=== PATIENT | male | born 1970 | race Caucasian/White ===

== ENCOUNTER 2016-12-23 06:46 | Emergency (ER) | payer OTHER ==
[~2016-12-23] VITALS: Ht 172.7 cm; Wt 93.0 kg
[~2016-12-23 06:46] MED LIST: CARB200T PO; COZA25TA PO; FOLI1TAB4 PO; HYDR25TA5 PO; LAMO25 PO; METR0.7537 TOPICAL; MORP1TAB25 PO; PANT20 PO; TOPA25TA8 PO; VITA100T2 PO; ZOLO100T PO
[2016-12-23 06:52] VITALS: BP 126/86; PULSE 110; RESP 20; TEMP 98.6; O2SAT 98
[2016-12-23] MEDS ORDERED: SODIUM CHLOR 0.9% 1000 ML INJ 1,000 ML IV ONE (07:00)
[2016-12-23] MEDS ORDERED: LORazepam 2 MG/ML VIAL IV ONE (07:00)
--- NOTE | 2016-12-23 07:02 | PD ---
HPI Chief Complaint: Psychiatric Symptoms Time Seen by Provider: 06:56 Travel History International Travel<30 days: No Contact w/Intl Traveler<30days: No Traveled to known affect area: No History of Present Illness HPI The patient is a 46-year-old male who presents emergency department via police as a Maradiaga act. According to the police affidavit the patient called 911 and stated he was having suicidal ideation. The patient does have a history of previous suicidal ideation with intentional overdose in July 2016. The patient has recently been having thoughts about suicide, however, does not have an actual plan. The patient does admit to drinking alcohol, last drink was last night. He denies any hallucinations or delusions. He denies any illicit drug use. Symptoms are moderate, there are no alleviating or exacerbating factors. PFSH Past Medical History Anxiety: Yes Depression: Yes Cancer: No Cardiovascular Problems: Yes (Reported hx of HTN) Diabetes: No Headaches: No Neurologic: Yes Psychiatric: Yes (Hx of anxiety and depression) Immunizations Current: Yes Seizures: Yes (Last seizure in 2010) Past Surgical History Other Surgery: Yes (STIMULATOR IN NECK) Social History Alcohol Use: Yes (occ) Tobacco Use: No Substance Use: No Allergies-Medications (Allergen,Severity, Reaction): Coded Allergies: Contrast Media (Verified Allergy, Severe, Shortness of Breath, 12/23/16) Penicillin (Verified Allergy, Severe, Shortness of Breath, 12/23/16) Reported Meds & Prescriptions Reported Meds & Active Scripts Active Metronidazole Topical 0.75 % Gel 1 Applic TOPICAL BID Apply thin layer to rash on face twice daily until resolved. Avoid mucous membranes like eyes. Topamax (Topiramate) 25 Mg Tab 25 Mg PO DIRECTED 15 Days Take 25mg by mouth in the morning and 50mg at bedtime. Vitamin B-1 (Thiamine HCl) 100 Mg Tab 100 Mg PO DAILY 15 Days Zoloft (Sertraline HCl) 100 Mg Tab 100 Mg PO DAILY 15 Days Morphine ER (Morphine Sulfate) 30 Mg Tab 30 Mg PO Q8HR 0 Days Order to update med list only. Pt has an adequate supply at home. Cozaar (Losartan Potassium) 25 Mg Tab 50 Mg PO DAILY 15 Days Lamictal (Lamotrigine) 25 Mg Tab 25 Mg PO Q12HR 15 Days Hydrochlorothiazide 25 Mg Tab 25 Mg PO DAILY 15 Days Folate (Folic Acid) 1 Mg Tab 1 Mg PO DAILY 15 Days Carbamazepine 200 Mg Tab 200 Mg PO BID 15 Days Reported Protonix (Pantoprazole Sodium) 20 Mg Tab 20 Mg PO DAILY Review of Systems Except as stated in HPI: all other systems reviewed are Neg General / Constitutional: No: Fever Cardiovascular: No: Chest Pain or Discomfort Respiratory: No: Shortness of Breath Gastrointestinal: No: Nausea, Vomiting, Abdominal Pain Neurologic: Positive: Seizures (intermittently compliant with Tegretol) Psychiatric: Positive: Suicidal Ideations, Substance Abuse (alcohol use) Physical Exam Narrative GENERAL: Awake, alert, pleasant 46-year-old male who appears his stated age and is in no acute respiratory distress. SKIN: Focused skin assessment warm/dry. HEAD: Atraumatic. Normocephalic. EYES: Pupils equal and round. No scleral icterus. No injection or drainage. ENT: No nasal bleeding or discharge. Breath smells of alcohol, poor dentition. NECK: Trachea midline. No JVD. CARDIOVASCULAR: Regular, tachycardic with a heart rate of 125. RESPIRATORY: No accessory muscle use. Clear to auscultation. Breath sounds equal bilaterally. GASTROINTESTINAL: Abdomen soft, non-tender, nondistended. Well-healed midline abdominal scar. MUSCULOSKELETAL: No obvious deformities. No clubbing. No cyanosis. No edema. NEUROLOGICAL: Awake and alert. No obvious cranial nerve deficits. Motor grossly within normal limits. Normal speech. Nonfocal. Oriented 4. Follows commands without difficulty. PSYCHIATRIC: Appropriate mood and affect; insight and judgment normal. Data Data Last Documented VS Vital Signs Date Time Temp Pulse Resp B/P Pulse Ox O2 Delivery O2 Flow Rate FiO2 12/23/16 07:42 89 18 113/59 100 Room Air 12/23/16 06:52 98.6 Orders Complete Blood Count With Diff (12/23/16 06:57) Comprehensive Metabolic Panel (12/23/16 06:57) Psych Screen (12/23/16 06:57) Lorazepam Inj (Ativan Inj) (12/23/16 07:00) Drug Screen, Random Urine (12/23/16 06:57) Alcohol (Ethanol) (12/23/16 06:57) Carbamazepine (Tegretol) (12/23/16 06:57) Sodium Chlor 0.9% 1000 Ml Inj (Ns 1000 M (12/23/16 07:00) Labs Laboratory Tests Test 12/23/16 12/23/16 07:10 07:30 White Blood Count 11.6 TH/MM3 Red Blood Count 5.41 MIL/MM3 Hemoglobin 15.8 GM/DL Hematocrit 46.4 % Mean Corpuscular Volume 85.7 FL Mean Corpuscular Hemoglobin 29.1 PG Mean Corpuscular Hemoglobin 34.0 % Concent Red Cell Distribution Width 16.9 % Platelet Count 425 TH/MM3 Mean Platelet Volume 7.8 FL Neutrophils (%) (Auto) 81.7 % Lymphocytes (%) (Auto) 11.7 % Monocytes (%) (Auto) 5.4 % Eosinophils (%) (Auto) 0.3 % Basophils (%) (Auto) 0.9 % Neutrophils # (Auto) 9.5 TH/MM3 Lymphocytes # (Auto) 1.4 TH/MM3 Monocytes # (Auto) 0.6 TH/MM3 Eosinophils # (Auto) 0.0 TH/MM3 Basophils # (Auto) 0.1 TH/MM3 CBC Comment DIFF FINAL Differential Comment Sodium Level 144 MEQ/L Potassium Level 4.2 MEQ/L Chloride Level 110 MEQ/L Carbon Dioxide Level 24.0 MEQ/L Anion Gap 10 MEQ/L Blood Urea Nitrogen 3 MG/DL Creatinine 0.87 MG/DL Estimat Glomerular Filtration 95 ML/MIN Rate Random Glucose 109 MG/DL Calcium Level 9.3 MG/DL Total Bilirubin 0.3 MG/DL Aspartate Amino Transf 26 U/L (AST/SGOT) Alanine Aminotransferase 19 U/L (ALT/SGPT) Alkaline Phosphatase 113 U/L Total Protein 8.2 GM/DL Albumin 3.8 GM/DL Carbamazepine (Tegretol) Level 0.6 MCG/ML Ethyl Alcohol Level 161 MG/DL Urine Opiates Screen NEG Urine Barbiturates Screen NEG Urine Amphetamines Screen NEG Urine Benzodiazepines Screen NEG Urine Cocaine Screen NEG Urine Cannabinoids Screen NEG MDM Medical Decision Making Medical Screen Exam Complete: Yes Emergency Medical Condition: Yes Medical Record Reviewed: Yes Interpretation(s) Laboratory Tests Test 12/23/16 12/23/16 07:10 07:30 White Blood Count 11.6 TH/MM3 Red Blood Count 5.41 MIL/MM3 Hemoglobin 15.8 GM/DL Hematocrit 46.4 % Mean Corpuscular Volume 85.7 FL Mean Corpuscular Hemoglobin 29.1 PG Mean Corpuscular Hemoglobin 34.0 % Concent Red Cell Distribution Width 16.9 % Platelet Count 425 TH/MM3 Mean Platelet Volume 7.8 FL Neutrophils (%) (Auto) 81.7 % Lymphocytes (%) (Auto) 11.7 % Monocytes (%) (Auto) 5.4 % Eosinophils (%) (Auto) 0.3 % Basophils (%) (Auto) 0.9 % Neutrophils # (Auto) 9.5 TH/MM3 Lymphocytes # (Auto) 1.4 TH/MM3 Monocytes # (Auto) 0.6 TH/MM3 Eosinophils # (Auto) 0.0 TH/MM3 Basophils # (Auto) 0.1 TH/MM3 CBC Comment DIFF FINAL Differential Comment Sodium Level 144 MEQ/L Potassium Level 4.2 MEQ/L Chloride Level 110 MEQ/L Carbon Dioxide Level 24.0 MEQ/L Anion Gap 10 MEQ/L Blood Urea Nitrogen 3 MG/DL Creatinine 0.87 MG/DL Estimat Glomerular Filtration 95 ML/MIN Rate Random Glucose 109 MG/DL Calcium Level 9.3 MG/DL Total Bilirubin 0.3 MG/DL Aspartate Amino Transf 26 U/L (AST/SGOT) Alanine Aminotransferase 19 U/L (ALT/SGPT) Alkaline Phosphatase 113 U/L Total Protein 8.2 GM/DL Albumin 3.8 GM/DL Carbamazepine (Tegretol) Level 0.6 MCG/ML Ethyl Alcohol Level 161 MG/DL Urine Opiates Screen NEG Urine Barbiturates Screen NEG Urine Amphetamines Screen NEG Urine Benzodiazepines Screen NEG Urine Cocaine Screen NEG Urine Cannabinoids Screen NEG Differential Diagnosis Differential diagnosis includes depressive disorder NOS, mood disorder, intoxication, substance induced mood disorder, alcohol abuse with alcohol induced mood disorder. Narrative Course IV was established, labs are drawn and sent, and the patient was placed on cardiac telemetry monitoring and continuous pulse oximetry monitoring. The patient was administered 1 L of IV fluids and Ativan 1 mg intravenously. Tegretol level was sent to lab. Tegretol level is subtherapeutic at 0.6. Alcohol level was elevated at 161. The patient is medically cleared to be evaluated by psychiatry. Disposition as per psych. Diagnosis Primary Impression: Alcohol abuse with alcohol-induced mood disorder Condition: Stable Braxton Owens MD December 23, 2016 07:02
[2016-12-23 07:30] LABS: AUTOMATED NEUTROPHIL # 9.5 TH/MM3 (1.8-7.7); BASOPHIL # 0.1 TH/MM3 (0-0.2); BASOPHIL % 0.9 % (0.0-2.0); EOSINOPHIL % 0.3 % (0.0-4.0); HEMATOCRIT 46.4 % (39.0-51.0); HEMO FLAGS DIFF FINAL; LYMPH % 11.7 % (9.0-44.0); LYMPHOCYTE # 1.4 TH/MM3 (1.0-4.8); MEAN CELL VOLUME 85.7 FL (80.0-100.0); MEAN CORPUSCULAR HEMOGLOBIN 29.1 PG (27.0-34.0); MONO % 5.4 % (0.0-8.0); NEUT % 81.7 % (16.0-70.0); PLATELET COUNT 425 TH/MM3 (150-450); RED BLOOD COUNT 5.41 MIL/MM3 (4.50-5.90); RED CELL DISTRIBUTION WIDTH 16.9 % (11.6-17.2); WHITE BLOOD COUNT 11.6 TH/MM3 (4.0-11.0)
[2016-12-23 07:42] VITALS: BP 113/59; PULSE 89; RESP 18; O2SAT 100
[2016-12-23 07:47] LABS: ALKALINE PHOSPHATASE 113 U/L (45-117); TOTAL BILIRUBIN ADULT 0.3 MG/DL (0.2-1.0)
[2016-12-23 07:50] LABS: AMPHETAMINE, URINE NEG (NEG); BARBITURATES, URINE NEG (NEG); COCAINE, URINE NEG (NEG)
[2016-12-23 07:50] LABS: ALT (GPT) 19 U/L (12-78); ANION GAP 10 MEQ/L (5-15); AST (GOT) 26 U/L (15-37); BLOOD UREA NITROGEN 3 MG/DL (7-18); CHLORIDE 110 MEQ/L (98-107); GLOMERULAR FILTRATION RATE 95 ML/MIN (>89); SODIUM (NA) 144 MEQ/L (136-145)
[2016-12-23 07:58] LABS: POTASSIUM 4.2 MEQ/L (3.5-5.1)
[2016-12-23 09:40] VITALS: BP 148/82
[2016-12-23] MEDS ORDERED: SERT-129 PO (14:46)
--- NOTE | 2016-12-23 15:05 | PD ---
History of Present Illness Chief Complaint: Psychiatric Symptoms Time Seen by Provider: 11:00 Travel History International Travel<30 Days: No Contact w/Intl Traveler<30days: No Known affected area: No Legal Status Legal Status: Maradiaga Act Maradiaga Act Signed By: Kimmy Manjarrez History of Present Illness: History of Present Illness HPI The patient is a 46-year-old male with history of depression, OCD as well as alcohol dependence who presents to emergency department via police as a Maradiaga act. According to the police affidavit the patient called 911 and stated he was having suicidal thoughts and that he was in the beginning stages of having suicidal ideas. he states that for the past 4 to 5 days he has been feeling more depressed with being more isolative, decreased energy and impaired sleep. He has also been drinking more and presented with BAL of 161. He has a recent psychiatric hospitalization in Jul 2016 after an overdose. He tells me that he did not follow up with recommendations for outpatient care and has run out of his antidepressants. Patient is seen in [facility]. he is alert, oriented, engaging and calm. He is clinically sober at this time. Speech is clear and logical. Mood is mildly depressed. He does not endorse any hallucinations, no delusions and no paranoia. He tells me that he is no longer feeling suicidal and that he would like to be discharged with a prescription in order to begin the antidepressant. he reports that the medication helped him while he took it. His reason for not following up after his discharge ids that he does not drive and depends on either friends or public transportation for rides to see his medical providers. At this time the patient denies any suicidal or homicidal ideation, intent or plan. PFSH Past Medical History Anxiety: Yes Depression: Yes Cancer: No Cardiovascular Problems: Yes (Reported hx of HTN) Diabetes: No Headaches: No Neurologic: Yes Psychiatric: Yes (Hx of anxiety and depression) Immunizations Current: Yes Seizures: Yes (Last seizure in 2010) Past Surgical History Tonsillectomy: Yes Other Surgery: Yes (STIMULATOR IN NECK) Psychiatric History Psychiatric History Hx Psychiatric Treatment: Pt reported a history of 2 psychiatric hospitalizations with the last one here at [facility] in 2016. History of Inpatient Treatment: Yes ([facility] 2016) Guns or firearms in home: No Social History Single male. never . Lives with a roommate. Unemployed and on disability. Hx Alcohol Use: Yes (occ) Hx Tobacco Use: No Hx Substance Use: No Substance Use Type: Alcohol (BAL 161. Staes he drinks one six pack per week.) Hx of Substance Use Treatment: No Family Psychiatric History None reported Allergies-Medications (Allergen,Severity, Reaction): Coded Allergies: Contrast Media (Verified Allergy, Severe, Shortness of Breath, 12/23/16) Penicillin (Verified Allergy, Severe, Shortness of Breath, 12/23/16) Reported Meds & Prescriptions Reported Meds & Active Scripts Active Topamax (Topiramate) 25 Mg Tab 25 Mg PO DIRECTED 15 Days Take 25mg by mouth in the morning and 50mg at bedtime. Morphine ER (Morphine Sulfate) 30 Mg Tab 30 Mg PO Q8HR 0 Days Order to update med list only. Pt has an adequate supply at home. Lamictal (Lamotrigine) 25 Mg Tab 25 Mg PO Q12HR 15 Days Carbamazepine 200 Mg Tab 200 Mg PO BID 15 Days Reported Sertraline (Sertraline HCl) 100 Mg Tab 100 Mg PO DAILY Exam Alert: Yes [place]: Person (ox4) Mood: Depressed Affect: Appropriate Speech: Clear, Logical Eye Contact: Normal Memory Intact: Comment (no impairmetn) Hallucinations: Other (negative) Delusions: No Suicidal: Ideation (denies any) Homicidal: Ideation (denies any) Insight/Judgement Fair. Not impaired. [facility] Medical Decision Making Medical Record Reviewed: Yes Assessment/Plan 46 year old male with history of MDD, OCD as well as alcohol dependence who is under a BA after he called the police as he was beginning to feel suicidal. the patient had been drinking prior to calling the police. Patient at the time of this evaluation is clinically sober. He denies any suicidal or homicidal ideation and is requesting discharge. He does not meet BA criteria at this time.He is future oriented. He is encouraged to maintain abstinence from ETOH. Recommend outpatient follow up. Lift BA Orders Complete Blood Count With Diff (12/23/16 06:57) Comprehensive Metabolic Panel (12/23/16 06:57) Psych Screen (12/23/16 06:57) Lorazepam Inj (Ativan Inj) (12/23/16 07:00) Drug Screen, Random Urine (12/23/16 06:57) Alcohol (Ethanol) (12/23/16 06:57) Carbamazepine (Tegretol) (12/23/16 06:57) Sodium Chlor 0.9% 1000 Ml Inj (Ns 1000 M (12/23/16 07:00) Diet Regular Basic (12/23/16 Lunch) Results Vital Signs Date Time Temp Pulse Resp B/P Pulse Ox O2 Delivery O2 Flow Rate FiO2 12/23/16 09:40 82 20 148/82 99 12/23/16 07:42 89 18 113/59 100 Room Air 12/23/16 07:42 89 18 12/23/16 06:52 98.6 110 20 126/86 98 Laboratory Tests Test 12/23/16 12/23/16 07:10 07:30 White Blood Count 11.6 Red Blood Count 5.41 Hemoglobin 15.8 Hematocrit 46.4 Mean Corpuscular Volume 85.7 Mean Corpuscular Hemoglobin 29.1 Mean Corpuscular Hemoglobin 34.0 Concent Red Cell Distribution Width 16.9 Platelet Count 425 Mean Platelet Volume 7.8 Neutrophils (%) (Auto) 81.7 Lymphocytes (%) (Auto) 11.7 Monocytes (%) (Auto) 5.4 Eosinophils (%) (Auto) 0.3 Basophils (%) (Auto) 0.9 Neutrophils # (Auto) 9.5 Lymphocytes # (Auto) 1.4 Monocytes # (Auto) 0.6 Eosinophils # (Auto) 0.0 Basophils # (Auto) 0.1 CBC Comment DIFF FINAL Differential Comment Sodium Level 144 Potassium Level 4.2 Chloride Level 110 Carbon Dioxide Level 24.0 Anion Gap 10 Blood Urea Nitrogen 3 Creatinine 0.87 Estimat Glomerular Filtration 95 Rate Random Glucose 109 Calcium Level 9.3 Total Bilirubin 0.3 Aspartate Amino Transf 26 (AST/SGOT) Alanine Aminotransferase 19 (ALT/SGPT) Alkaline Phosphatase 113 Total Protein 8.2 Albumin 3.8 Carbamazepine (Tegretol) Level 0.6 Ethyl Alcohol Level 161 Urine Opiates Screen NEG Urine Barbiturates Screen NEG Urine Amphetamines Screen NEG Urine Benzodiazepines Screen NEG Urine Cocaine Screen NEG Urine Cannabinoids Screen NEG Diagnosis Primary Impression: Alcohol abuse with alcohol-induced mood disorder Additional Impression: Major depressive disorder Psychiatrically Cleared: Yes Med/ Other Pt Specific Info: Prescription(s) given Prescriptions Sertraline (Zoloft)50 Mg Tab50 Mg PO DAILY #30 TAB Ref 0 Prov:Meche Finney 12/23/16 Disposition: 01 DISCHARGE HOME Condition: Stable Problem Qualifiers Additional Impression: Major depressive disorder Qualified Code: F33.0 - Mild episode of recurrent major depressive disorder Meche Finney December 23, 2016 15:05
[2016-12-23] MEDS ORDERED: ZOLO50TA PO (15:08)
[2016-12-23 15:13] VITALS: BP 148/82
[2016-12-27] MEDS ORDERED: LORazepam 2 MG/ML VIAL IV ONE (18:15)
== END 2016-12-23 15:17 | disposition home or self-care (01) ==
LOC: NEPE 06:46 → NEPJ 15:17
DX: F10.24 Alcohol dependence with alcohol-induced mood disorder (principal); F33.0 Major depressive disorder, recurrent, mild; Y90.6 Blood alcohol level of 120-199 mg/100 ml; Z79.899 Other long term (current) drug therapy
CPT/HCPCS: 80053; 80156; 80307; 85025; 96361; 96374; 99283; J2060; J7030

== ENCOUNTER 2017-10-04 03:27 | Emergency (ER) | payer OTHER ==
[~2017-10-04] VITALS: Ht 172.7 cm; Wt 90.5 kg
[~2017-10-04 03:27] MED LIST changes: -COZA25TA PO; -FOLI1TAB4 PO; -HYDR25TA5 PO; -METR0.7537 TOPICAL; -PANT20 PO; +SERT-129 PO; -TOPA25TA8 PO; +TOPI25 PO; -VITA100T2 PO; -ZOLO100T PO; +ZOLO50TA PO
[2017-10-04 03:29] VITALS: BP 152/83; PULSE 85; RESP 18; TEMP 98.6; O2SAT 95
[2017-10-04] MEDS ORDERED: METO25TA3 PO (03:50)
[2017-10-04] MEDS ORDERED: RESP: ALBUTEROL 2.5 MG/IPRATROPIUM 0.5 MG NEB (SCH) INH ONE (04:30)
[2017-10-04 04:43] LABS: AUTOMATED NEUTROPHIL # 2.8 TH/MM3 (1.8-7.7); BASOPHIL % 0.4 % (0.0-2.0); EOSINOPHIL # 0.3 TH/MM3 (0-0.4); EOSINOPHIL % 5.4 % (0.0-4.0); HEMATOCRIT 44.1 % (39.0-51.0); HEMOGLOBIN 15.4 GM/DL (13.0-17.0); LYMPH % 24.4 % (9.0-44.0); LYMPHOCYTE # 1.3 TH/MM3 (1.0-4.8); MEAN CELL VOLUME 86.8 FL (80.0-100.0); MEAN CORPUSCULAR HEMOGLOBIN 30.4 PG (27.0-34.0); MEAN PLATELET VOLUME 7.2 FL (7.0-11.0); MONO % 15.2 % (0.0-8.0); MONOCYTE # 0.8 TH/MM3 (0-0.9); NEUT % 54.6 % (16.0-70.0); PLATELET COUNT 237 TH/MM3 (150-450); RED BLOOD COUNT 5.08 MIL/MM3 (4.50-5.90); WHITE BLOOD COUNT 5.2 TH/MM3 (4.0-11.0)
--- NOTE | 2017-10-04 04:46 | RADRPT ---
EXAM DATE/TIME: 10/04/2017 04:33 [facility] COMPARISON: No previous studies available for comparison. INDICATIONS : Shortness of breath and wheezing x 1 week MEDICAL HISTORY : Hypertension. SURGICAL HISTORY : Tonsillectomy. ENCOUNTER: Initial ACUITY: 1 week PAIN SCORE: 7/10 LOCATION: Bilateral chest FINDINGS: There is prominence of the perivascular markings with crowding of the bronchovascular markings may be due to expiratory state of this radiograph, however slight interstitial process is not excluded. Hea rt and mediastinum are unremarkable for technique. CONCLUSION: There is prominence of the perivascular markings with crowding of the bronchovascular markings may be due to expiratory state of this radiograph, however slight interstitial process is not excluded. Abdullahi Olivares MD on October 04, 2017 at 4:44 Board Certified Radiologist. This report was verified electronically.
[2017-10-04 04:59] LABS: ALBUMIN 3.9 GM/DL (3.4-5.0); ALT (GPT) 24 U/L (12-78); AST (GOT) 27 U/L (15-37); BICARBONATE 22.8 MEQ/L (21.0-32.0); BLOOD UREA NITROGEN 4 MG/DL (7-18); CALCIUM 8.6 MG/DL (8.5-10.1); CHLORIDE 103 MEQ/L (98-107); CREATININE 0.84 MG/DL (0.60-1.30); GLOMERULAR FILTRATION RATE 98 ML/MIN (>89); GLUCOSE,RANDOM 83 MG/DL (74-106); SODIUM (NA) 136 MEQ/L (136-145)
[2017-10-04 05:09] LABS: ALKALINE PHOSPHATASE 133 U/L (45-117); TOTAL BILIRUBIN ADULT 0.3 MG/DL (0.2-1.0); TOTAL PROTEIN 8.1 GM/DL (6.4-8.2)
--- NOTE | 2017-10-04 05:23 | PD ---
HPI Chief Complaint: Psychiatric Symptoms Time Seen by Provider: 04:12 Travel History International Travel<30 days: No Contact w/Intl Traveler<30days: No Traveled to known affect area: No History of Present Illness HPI 47-year-old white male presents emergency department on a voluntary basis for psychological evaluation. Patient states that his mother this past month. He feels guilty. He states that she was on the phone with him when she was attempting to repair some wound dressings when she accidentally cut herself with scissors and blood out Coumadin. The patient states that he has contemplated suicide. Has no current plan. No homicidal ideation. No toxic ingestions. The patient is overwhelmed with guilt. He states that he would like to come in and get help before he does anything. Patient does admit to having a cold recently. He has had runny nose, cough and congestion. Some wheezing. He denies any tobacco. Denies any drugs. He does admit to alcohol. 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) Neurologic: Yes Psychiatric: Yes (Hx of anxiety and depression) Immunizations Current: Yes Seizures: Yes (Last seizure in 2010) Influenza Vaccination: Yes Past Surgical History Narrative Surgical Multiple left arm surgeries for left elbow fracture and nerve palsy Tonsillectomy: Yes Other Surgery: Yes (STIMULATOR IN NECK) Social History Alcohol Use: Yes (daily) Tobacco Use: No Substance Use: No Allergies-Medications (Allergen,Severity, Reaction): Coded Allergies: diatrizoate meglumine (Unverified Allergy, Severe, Shortness of Breath, ) gadobenic acid (Unverified Allergy, Severe, Shortness of Breath, 10/04/17) gadodiamide (Unverified Allergy, Severe, Shortness of Breath, 10/04/17) gadoteridol (Unverified Allergy, Severe, Shortness of Breath, 10/04/17) iodixanol (Unverified Allergy, Severe, Shortness of Breath, 10/04/17) iohexol (Unverified Allergy, Severe, Shortness of Breath, 10/04/17) penicillin G (Unverified Allergy, Severe, Shortness of Breath, 10/04/17) Reported Meds & Prescriptions Reported Meds & Active Scripts Active Proventil Hfa 6.7 GM Inh (Albuterol Sulfate) 90 Mcg/Act Aer 2 Puff INH Q6H PRN Deltasone (Prednisone) 20 Mg Tab 20 Mg PO BID Topamax (Topiramate) 25 Mg Tab 25 Mg PO DIRECTED 15 Days Take 25mg by mouth in the morning and 50mg at bedtime. Morphine ER (Morphine Sulfate) 30 Mg Tab 30 Mg PO Q8HR 0 Days Order to update med list only. Pt has an adequate supply at home. Lamictal (Lamotrigine) 25 Mg Tab 25 Mg PO Q12HR 15 Days Carbamazepine 200 Mg Tab 200 Mg PO BID 15 Days Reported Metoprolol Tartrate 25 Mg Tab 25 Mg PO DAILY Review of Systems Except as stated in HPI: all other systems reviewed are Neg Physical Exam Narrative GENERAL: Well-nourished, well-developed patient.Patient smells of EtOH and appears intoxicated. SKIN: Warm and dry. HEAD: Normocephalic and atraumatic. EYES: No scleral icterus. No injection or drainage. ENT: No nasal drainage noted. Mucous membranes pink. Airway patent. NECK: Supple, trachea midline. Moves head freely without obvious discomfort. CARDIOVASCULAR: Regular rate and rhythm without murmurs, gallops, or rubs. RESPIRATORY: Patient has scattered rhonchi and a few expiratory wheezes. GASTROINTESTINAL: Abdomen soft, non-tender, nondistended. EXTREMITIES: No cyanosis or edema. BACK: Nontender without obvious deformity. No CVA tenderness. NEURO: Patient is alert and oriented. no sensorimotor deficits. Nonfocal. Normal speech. PSYCH: No delusions. No auditory or visual hallucinations. Data Data Last Documented VS Vital Signs Date Time Temp Pulse Resp B/P (MAP) Pulse Ox O2 Delivery O2 Flow Rate FiO2 10/04/17 03:29 98.6 85 18 152/83 (106) 95 Orders Orders Complete Blood Count With Diff (10/04/17 04:19) Comprehensive Metabolic Panel (10/04/17 04:19) Thyroid Stimulating Hormone (10/04/17 04:19) Psych Screen (10/04/17 04:19) Drug Screen, Random Urine (10/04/17 04:19) Alcohol (Ethanol) (10/04/17 04:19) Chest, Single Ap (10/04/17 04:19) Albuterol-Ipratropium Neb (Duoneb Neb) (10/04/17 04:30) Influenzae A/B Antigen (10/04/17 04:19) Labs Laboratory Tests Test 10/04/17 04:38 10/04/17 05:20 White Blood Count 5.2 TH/MM3 Red Blood Count 5.08 MIL/MM3 Hemoglobin 15.4 GM/DL Hematocrit 44.1 % Mean Corpuscular Volume 86.8 FL Mean Corpuscular Hemoglobin 30.4 PG Mean Corpuscular Hemoglobin Concent 35.0 % Red Cell Distribution Width 17.0 % Platelet Count 237 TH/MM3 Mean Platelet Volume 7.2 FL Neutrophils (%) (Auto) 54.6 % Lymphocytes (%) (Auto) 24.4 % Monocytes (%) (Auto) 15.2 % Eosinophils (%) (Auto) 5.4 % Basophils (%) (Auto) 0.4 % Neutrophils # (Auto) 2.8 TH/MM3 Lymphocytes # (Auto) 1.3 TH/MM3 Monocytes # (Auto) 0.8 TH/MM3 Eosinophils # (Auto) 0.3 TH/MM3 Basophils # (Auto) 0.0 TH/MM3 CBC Comment DIFF FINAL Differential Comment Blood Urea Nitrogen 4 MG/DL Creatinine 0.84 MG/DL Random Glucose 83 MG/DL Total Protein 8.1 GM/DL Albumin 3.9 GM/DL Calcium Level 8.6 MG/DL Alkaline Phosphatase 133 U/L Aspartate Amino Transf (AST/SGOT) 27 U/L Alanine Aminotransferase (ALT/SGPT) 24 U/L Total Bilirubin 0.3 MG/DL Sodium Level 136 MEQ/L Potassium Level 3.7 MEQ/L Chloride Level 103 MEQ/L Carbon Dioxide Level 22.8 MEQ/L Anion Gap 10 MEQ/L Estimat Glomerular Filtration Rate 98 ML/MIN Thyroid Stimulating Hormone 3rd Gen 1.080 uIU/ML Ethyl Alcohol Level 316 MG/DL Urine Opiates Screen NEG Urine Barbiturates Screen NEG Urine Amphetamines Screen NEG Urine Benzodiazepines Screen NEG Urine Cocaine Screen NEG Urine Cannabinoids Screen NEG MDM Medical Decision Making Medical Screen Exam Complete: Yes Emergency Medical Condition: Yes Medical Record Reviewed: Yes Interpretation(s) Last 24 hours Impressions Chest X-Ray 10/04/17 0419 Signed Impressions: Service Date/Time: Wednesday, October 04, 2017 04:33 - CONCLUSION: There is prominence of the perivascular markings with crowding of the bronchovascular markings may be due to expiratory state of this radiograph, however slight interstitial process is not excluded. Abdullahi Olivares MD Laboratory Tests Test 10/04/17 04:38 10/04/17 05:20 White Blood Count 5.2 TH/MM3 Red Blood Count 5.08 MIL/MM3 Hemoglobin 15.4 GM/DL Hematocrit 44.1 % Mean Corpuscular Volume 86.8 FL Mean Corpuscular Hemoglobin 30.4 PG Mean Corpuscular Hemoglobin Concent 35.0 % Red Cell Distribution Width 17.0 % Platelet Count 237 TH/MM3 Mean Platelet Volume 7.2 FL Neutrophils (%) (Auto) 54.6 % Lymphocytes (%) (Auto) 24.4 % Monocytes (%) (Auto) 15.2 % Eosinophils (%) (Auto) 5.4 % Basophils (%) (Auto) 0.4 % Neutrophils # (Auto) 2.8 TH/MM3 Lymphocytes # (Auto) 1.3 TH/MM3 Monocytes # (Auto) 0.8 TH/MM3 Eosinophils # (Auto) 0.3 TH/MM3 Basophils # (Auto) 0.0 TH/MM3 CBC Comment DIFF FINAL Differential Comment Blood Urea Nitrogen 4 MG/DL Creatinine 0.84 MG/DL Random Glucose 83 MG/DL Total Protein 8.1 GM/DL Albumin 3.9 GM/DL Calcium Level 8.6 MG/DL Alkaline Phosphatase 133 U/L Aspartate Amino Transf (AST/SGOT) 27 U/L Alanine Aminotransferase (ALT/SGPT) 24 U/L Total Bilirubin 0.3 MG/DL Sodium Level 136 MEQ/L Potassium Level 3.7 MEQ/L Chloride Level 103 MEQ/L Carbon Dioxide Level 22.8 MEQ/L Anion Gap 10 MEQ/L Estimat Glomerular Filtration Rate 98 ML/MIN Thyroid Stimulating Hormone 3rd Gen 1.080 uIU/ML Ethyl Alcohol Level 316 MG/DL Urine Opiates Screen NEG Urine Barbiturates Screen NEG Urine Amphetamines Screen NEG Urine Benzodiazepines Screen NEG Urine Cocaine Screen NEG Urine Cannabinoids Screen NEG Differential Diagnosis MDM: High Differential diagnoses: Schizophrenia, schizoaffective disorder, bipolar, anxiety, depression, adjustment reaction, mood disorder NOS, ODD, depressive disorder NOS, dementia, dementia with agitation, psychosis NOS, substance induced mood disorder, DMDD, Asperger syndrome, infection,electrolyte abnormality, malingering. Narrative Course Mental health screening discussed with the patient. Psychiatric screen ordered. The patient was given albuterol and Atrovent nebulizer treatment. Chest x-ray shows interstitial changes consistent with an upper respiratory tract infection but no pneumonia. I suspect he has some reactive airway component. This is medical clearance for psychiatric admission, alcohol intoxication, alcohol abuse, reactive airway disease Diagnosis Primary Impression: Medical clearance for psychiatric admission Additional Impressions: Alcohol intoxication Qualified Codes: F10.920 - Alcohol use, unspecified with intoxication, uncomplicated Alcohol abuse Reactive airway disease Qualified Codes: J45.909 - Unspecified asthma, uncomplicated Scripts Albuterol 6.7 GM Inh (Proventil Hfa 6.7 GM Inh) 90 Mcg/Act Aer 2 PUFF INH Q6H Y for SHORTNESS OF BREATH, #1 INHALER 0 Refills Prov: Kenny Diaz MD 10/04/17 Prednisone (Deltasone) 20 Mg Tab 20 MG PO BID, #10 TAB 0 Refills Prov: Kenny Diaz MD 10/04/17 Condition: Stable Danny Barrett Oct 04, 2017 05:23
[2017-10-04] MEDS ORDERED: ALBU6.7H INH (05:56)
[2017-10-04] MEDS ORDERED: PRED-503 PO (05:56)
[2017-10-04] MEDS ORDERED: guaiFENesin/CODEINE SYRUP 200 MG/20 MG/10 ML CUP PO ONE (08:00)
[2017-10-04 09:23] VITALS: BP 129/87; PULSE 118; RESP 18; O2SAT 95
[2017-10-04] MEDS ORDERED: TRAZ50TA12 PO (15:00)
--- NOTE | 2017-10-04 15:28 | PD ---
History of Present Illness Chief Complaint: Psychiatric Symptoms Time Seen by Provider: 15:00 Travel History International Travel<30 Days: No Contact w/Intl Traveler<30days: No Known affected area: No Legal Status Legal Status: Voluntary History of Present Illness: History of Present Illness HPI 47-year-old white male with history of depression, obsessive-compulsive disorder , alcohol abuse who presents emergency department on a voluntary basis for psychological evaluation. She reported to ED provider that his mother this past month and he has been feeling guilty about her . He states that he was on the phone with his mother when she was attempting to repair some more dressings and she accidentally cut herself with scissors and bled out due to being on Coumadin. He presented intoxicated and his blood alcohol level was 316 on his arrival to the ED. He admits to drinking prior to getting here. The patient was allowed to sleep it off and was monitored. He presented no behavioral concerns and no suicidality. Electronic medical record is reviewed. His last contact with [facility] psychiatry was in December 2016. He came in under a [place] for suicidality act in context of alcohol intoxication. His last hospitalization was in July 2016 for substance-induced mood disorder. The patient is seen in [facility]. He is clinically sober. No evidence of any alcohol withdrawal at this time. He is calm, cooperative and engaging. He is dressed in hospital [facility]. Poor hygiene and malodorous. His mood is calm. There is no psychosis, no saturnino or hypomania. He denies any suicidal or homicidal ideation, intent or plan. He states that he had been drinking and that was the reason he was feeling suicidal. He also tells me that he has not been sleeping well due to not being able to get his medication from [facility] due to problems with the prescription. 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 Outpatient care through [facility]. History of Inpatient Treatment: Yes ([facility] 2016) Guns or firearms in home: No Social History Single never male. Unemployed. Lives with a roommate. Has completed 4 years of college but did not graduate. Has worked as a patrol police lieutenant in the past. Hx Alcohol Use: Yes (daily) Hx Tobacco Use: No Hx Substance Use: Yes (12 beers/day approx. 3/week) Substance Use Type: Alcohol Hx of Substance Use Treatment: No Family Psychiatric History Negative Allergies-Medications (Allergen,Severity, Reaction): Coded Allergies: diatrizoate meglumine (Unverified Allergy, Severe, Shortness of Breath, ) gadobenic acid (Unverified Allergy, Severe, Shortness of Breath, 10/04/17) gadodiamide (Unverified Allergy, Severe, Shortness of Breath, 10/04/17) gadoteridol (Unverified Allergy, Severe, Shortness of Breath, 10/04/17) iodixanol (Unverified Allergy, Severe, Shortness of Breath, 10/04/17) iohexol (Unverified Allergy, Severe, Shortness of Breath, 10/04/17) penicillin G (Unverified Allergy, Severe, Shortness of Breath, 10/04/17) Reported Meds & Prescriptions Reported Meds & Active Scripts Active Trazodone (Trazodone HCl) 50 Mg Tab 50 Mg PO HS PRN 14 Days Proventil Hfa 6.7 GM Inh (Albuterol Sulfate) 90 Mcg/Act Aer 2 Puff INH Q6H PRN Deltasone (Prednisone) 20 Mg Tab 20 Mg PO BID Topamax (Topiramate) 25 Mg Tab 25 Mg PO DIRECTED 15 Days Take 25mg by mouth in the morning and 50mg at bedtime. Morphine ER (Morphine Sulfate) 30 Mg Tab 30 Mg PO Q8HR 0 Days Order to update med list only. Pt has an adequate supply at home. Lamictal (Lamotrigine) 25 Mg Tab 25 Mg PO Q12HR 15 Days Carbamazepine 200 Mg Tab 200 Mg PO BID 15 Days Reported Metoprolol Tartrate 25 Mg Tab 25 Mg PO DAILY Review of Systems Respiratory: COMPLAINS OF: Cough, Sputum production, Shortness of breath Mental Status Examination Appearance: Disheveled, Malodorous Consciousness: Alert Orientation: x4 Motor Activity: Normal gait Speech: Unremarkable Language: Adequate Fund of Knowledge: Adequate Attention and Concentration: Adequate Memory: Unremarkable Mood: Appropriate, Anxious Affect: Appropriate Thought Process & Associations: Intact, Logical, Goal directed Thought Content: Appropriate Hallucination Type: None Delusion Type: None Suicidal Ideation: No Suicidal Plan: No Suicidal Intention: No Homicidal Ideation: No Homicidal Plan: No Homicidal Intention: No Insight: Fair Judgment: Adequate MDM Medical Decision Making Medical Record Reviewed: Yes Assessment/Plan 47-year-old male with history of depression, obsessive-compulsive disorder, alcohol abuse who in context of acute alcohol intoxication with blood alcohol level of 316 presented to the emergency department on a voluntary basis for psychiatric evaluation. He reported to ED provider that he has been feeling depressed, guilty over his mother's , and that he had contemplated suicide. He had no current plan. Patient was allowed to sober up clinically in safe environment. Once clinically sober the patient denies any suicidal or homicidal ideation, intent or plan. He does requests a prescription since he has been having trouble getting his medication from [facility]. He is requesting to be discharge at this time as well. He contracts for safety. He is cognitively intact. Patient at this time is provided psychoeducation. Alcohol abuse treatment is recommended such as AA. Patient is psychiatrically clear for discharge at this time Orders Orders Complete Blood Count With Diff (10/04/17 04:19) Comprehensive Metabolic Panel (10/04/17 04:19) Thyroid Stimulating Hormone (10/04/17 04:19) Psych Screen (10/04/17 04:19) Drug Screen, Random Urine (10/04/17 04:19) Alcohol (Ethanol) (10/04/17 04:19) Chest, Single Ap (10/04/17 04:19) Albuterol-Ipratropium Neb (Duoneb Neb) (10/04/17 04:30) Influenzae A/B Antigen (10/04/17 04:19) Diet Regular Basic (10/04/17 Breakfast) Guaifen-Cod 200-20 Mg/10ml Liq (Robituss (10/04/17 08:00) Diet Regular Basic (10/04/17 Lunch) Results Vital Signs Date Time Temp Pulse Resp B/P (MAP) Pulse Ox O2 Delivery O2 Flow Rate FiO2 10/04/17 09:23 118 18 129/87 (101) 95 Room Air 10/04/17 03:29 98.6 85 18 152/83 (106) 95 Laboratory Tests Test 10/04/17 04:38 10/04/17 05:20 White Blood Count 5.2 Red Blood Count 5.08 Hemoglobin 15.4 Hematocrit 44.1 Mean Corpuscular Volume 86.8 Mean Corpuscular Hemoglobin 30.4 Mean Corpuscular Hemoglobin Concent 35.0 Red Cell Distribution Width 17.0 Platelet Count 237 Mean Platelet Volume 7.2 Neutrophils (%) (Auto) 54.6 Lymphocytes (%) (Auto) 24.4 Monocytes (%) (Auto) 15.2 Eosinophils (%) (Auto) 5.4 Basophils (%) (Auto) 0.4 Neutrophils # (Auto) 2.8 Lymphocytes # (Auto) 1.3 Monocytes # (Auto) 0.8 Eosinophils # (Auto) 0.3 Basophils # (Auto) 0.0 CBC Comment DIFF FINAL Differential Comment Blood Urea Nitrogen 4 Creatinine 0.84 Random Glucose 83 Total Protein 8.1 Albumin 3.9 Calcium Level 8.6 Alkaline Phosphatase 133 Aspartate Amino Transf (AST/SGOT) 27 Alanine Aminotransferase (ALT/SGPT) 24 Total Bilirubin 0.3 Sodium Level 136 Potassium Level 3.7 Chloride Level 103 Carbon Dioxide Level 22.8 Anion Gap 10 Estimat Glomerular Filtration Rate 98 Thyroid Stimulating Hormone 3rd Gen 1.080 Ethyl Alcohol Level 316 Urine Opiates Screen NEG Urine Barbiturates Screen NEG Urine Amphetamines Screen NEG Urine Benzodiazepines Screen NEG Urine Cocaine Screen NEG Urine Cannabinoids Screen NEG Date/Time Source Procedure Growth Status 10/04/17 04:38 Nasal Washing Influenza Types A,B Antigen ([facility]) - Final NEGATIVE FOR FLU A AND B ANTIGEN.... Complete Diagnosis Primary Impression: Alcohol intoxication Additional Impression: Alcohol abuse with alcohol-induced mood disorder Psychiatrically Cleared: Yes Med/ Other Pt Specific Info: Prescription(s) given Prescriptions Trazodone (Trazodone) 50 Mg Tab 50 MG PO HS Y for INSOMNIA for 14 Days, #15 TAB 0 Refills Prov: Finney,Meche Sayda Uriarte FOREIGN DIPLOMAT 10/04/17 Albuterol 6.7 GM Inh (Proventil Hfa 6.7 GM Inh) 90 Mcg/Act Aer 2 PUFF INH Q6H Y for SHORTNESS OF BREATH, #1 INHALER 0 Refills Prov: Kenny Diaz MD 10/04/17 Prednisone (Deltasone) 20 Mg Tab 20 MG PO BID, #10 TAB 0 Refills Prov: Kenny Diaz MD 10/04/17 Disposition: 01 DISCHARGE HOME Condition: Stable Problem Qualifiers Primary Impression: Alcohol intoxication Qualified Codes: F10.920 - Alcohol use, unspecified with intoxication, uncomplicated Meche FinneyP Oct 04, 2017 15:28
--- NOTE | 2017-10-04 15:55 | PD ---
Physical Exam Date Seen by Provider: Oct 04, 2017 Time Seen by Provider: 15:53 Narrative 47-year-old male previously medically cleared for psychiatric evaluation, has been seen and evaluated by psychiatric staff and felt to be psychiatrically stable for discharge. Patient remains medically stable at this time. Follow- up plan will be as per psychiatric note. Data Data Last Documented VS Vital Signs Date Time Temp Pulse Resp B/P (MAP) Pulse Ox O2 Delivery O2 Flow Rate FiO2 10/04/17 09:23 118 18 129/87 (101) 95 Room Air 10/04/17 03:29 98.6 Orders Orders Complete Blood Count With Diff (10/04/17 04:19) Comprehensive Metabolic Panel (10/04/17 04:19) Thyroid Stimulating Hormone (10/04/17 04:19) Psych Screen (10/04/17 04:19) Drug Screen, Random Urine (10/04/17 04:19) Alcohol (Ethanol) (10/04/17 04:19) Chest, Single Ap (10/04/17 04:19) Albuterol-Ipratropium Neb (Duoneb Neb) (10/04/17 04:30) Influenzae A/B Antigen (10/04/17 04:19) Diet Regular Basic (10/04/17 Breakfast) Guaifen-Cod 200-20 Mg/10ml Liq (Robituss (10/04/17 08:00) Diet Regular Basic (10/04/17 Lunch) Labs Laboratory Tests Test 10/04/17 04:38 10/04/17 05:20 White Blood Count 5.2 TH/MM3 Red Blood Count 5.08 MIL/MM3 Hemoglobin 15.4 GM/DL Hematocrit 44.1 % Mean Corpuscular Volume 86.8 FL Mean Corpuscular Hemoglobin 30.4 PG Mean Corpuscular Hemoglobin Concent 35.0 % Red Cell Distribution Width 17.0 % Platelet Count 237 TH/MM3 Mean Platelet Volume 7.2 FL Neutrophils (%) (Auto) 54.6 % Lymphocytes (%) (Auto) 24.4 % Monocytes (%) (Auto) 15.2 % Eosinophils (%) (Auto) 5.4 % Basophils (%) (Auto) 0.4 % Neutrophils # (Auto) 2.8 TH/MM3 Lymphocytes # (Auto) 1.3 TH/MM3 Monocytes # (Auto) 0.8 TH/MM3 Eosinophils # (Auto) 0.3 TH/MM3 Basophils # (Auto) 0.0 TH/MM3 CBC Comment DIFF FINAL Differential Comment Blood Urea Nitrogen 4 MG/DL Creatinine 0.84 MG/DL Random Glucose 83 MG/DL Total Protein 8.1 GM/DL Albumin 3.9 GM/DL Calcium Level 8.6 MG/DL Alkaline Phosphatase 133 U/L Aspartate Amino Transf (AST/SGOT) 27 U/L Alanine Aminotransferase (ALT/SGPT) 24 U/L Total Bilirubin 0.3 MG/DL Sodium Level 136 MEQ/L Potassium Level 3.7 MEQ/L Chloride Level 103 MEQ/L Carbon Dioxide Level 22.8 MEQ/L Anion Gap 10 MEQ/L Estimat Glomerular Filtration Rate 98 ML/MIN Thyroid Stimulating Hormone 3rd Gen 1.080 uIU/ML Ethyl Alcohol Level 316 MG/DL Urine Opiates Screen NEG Urine Barbiturates Screen NEG Urine Amphetamines Screen NEG Urine Benzodiazepines Screen NEG Urine Cocaine Screen NEG Urine Cannabinoids Screen NEG MDM Medical Record Reviewed: Yes Supervised Visit with DEBORAH: Yes Narrative Course 47-year-old male previously medically cleared for psychiatric evaluation, has been seen and evaluated by psychiatric staff and felt to be psychiatrically stable for discharge. Patient remains medically stable at this time. Follow- up plan will be as per psychiatric note. Diagnosis Primary Impression: Alcohol intoxication Qualified Codes: F10.920 - Alcohol use, unspecified with intoxication, uncomplicated Additional Impression: Alcohol abuse with alcohol-induced mood disorder Patient Instructions: General Instructions Departure Forms: Tests/Procedures Additional Instruction: Follow up with Duarte Ram. Follow up with primary care clinic or [facility]. Stop drinking alcohol. Take all meds as prescribed. Return to the ED for any worsening. Scripts Trazodone (Trazodone) 50 Mg Tab 50 MG PO HS Y for INSOMNIA for 14 Days, #15 TAB 0 Refills Prov: FinneyMeche POTATO GRADER 10/04/17 Albuterol 6.7 GM Inh (Proventil Hfa 6.7 GM Inh) 90 Mcg/Act Aer 2 PUFF INH Q6H Y for SHORTNESS OF BREATH, #1 INHALER 0 Refills Prov: Kenny Diaz MD 10/04/17 Prednisone (Deltasone) 20 Mg Tab 20 MG PO BID, #10 TAB 0 Refills Prov: Kenny Diaz MD 10/04/17 Disposition: 01 DISCHARGE HOME Condition: Stable Rony Rasmussen Oct 04, 2017 15:55
== END 2017-10-04 16:52 | disposition home or self-care (01) ==
LOC: NEPD 03:27 → NEPJ 16:52
DX: F10.14 Alcohol abuse with alcohol-induced mood disorder (principal); F42.9 Obsessive-compulsive disorder, unspecified; J45.909 Unspecified asthma, uncomplicated; R05 Cough; R09.89 Other specified symptoms and signs involving the circulatory and respiratory systems; F41.9 Anxiety disorder, unspecified; R56.9 Unspecified convulsions; I10 Essential (primary) hypertension; Z79.899 Other long term (current) drug therapy
CPT/HCPCS: 71045; 80053; 80307; 84443; 85025; 87804; 94664; 99284

== ENCOUNTER 2018-01-21 19:55 | Emergency (ER) | payer OTHER ==
[~2018-01-21] VITALS: Ht 167.6 cm; Wt 75.0 kg
[~2018-01-21 19:55] MED LIST changes: +ALBU6.7H INH; +METO25TA3 PO; +PRED-503 PO; -SERT-129 PO; +TRAZ50TA12 PO; -ZOLO50TA PO
[2018-01-21 20:14] VITALS: BP 145/104; PULSE 120; RESP 18; TEMP 98.6; O2SAT 97
--- NOTE | 2018-01-21 20:27 | PD ---
HPI Chief Complaint: Psychiatric Symptoms Time Seen by Provider: 20:24 Travel History International Travel<30 days: No Contact w/Intl Traveler<30days: No Traveled to known affect area: No History of Present Illness HPI This is a 47-year-old male who presents under Maradiaga act initiated by the Police Department. According to his paperwork patient was concerned that he was being followed at [facility]. He was felt to be paranoid and thus he was brought here for further evaluation. The patient reports that over the past few days he has felt like someone is watching him all the time and following him. He believes that his phone, house, roommates phone were all hacked by an unknown person or persons. He reports that his bank account was closed. Symptom onset 2-3 days ago. No obvious aggravating or relieving factors. He reports occasional alcohol use but none today. He denies any illicit substance use. Denies any suicidal or homicidal ideation. Per chart review he has been seen here several times in the past for evaluation of alcohol intoxication. He has no other complaints at this time. 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 3/week) Allergies-Medications (Allergen,Severity, Reaction): Coded Allergies: diatrizoate meglumine (Unverified Allergy, Severe, Shortness of Breath, ) gadobenic acid (Unverified Allergy, Severe, Shortness of Breath, 10/04/17) gadodiamide (Unverified Allergy, Severe, Shortness of Breath, 10/04/17) gadoteridol (Unverified Allergy, Severe, Shortness of Breath, 10/04/17) iodixanol (Unverified Allergy, Severe, Shortness of Breath, 10/04/17) iohexol (Unverified Allergy, Severe, Shortness of Breath, 10/04/17) penicillin G (Unverified Allergy, Severe, Shortness of Breath, 10/04/17) Reported Meds & Prescriptions Reported Meds & Active Scripts Active Trazodone (Trazodone HCl) 50 Mg Tab 50 Mg PO HS PRN 14 Days Proventil Hfa 6.7 GM Inh (Albuterol Sulfate) 90 Mcg/Act Aer 2 Puff INH Q6H PRN Deltasone (Prednisone) 20 Mg Tab 20 Mg PO BID Topamax (Topiramate) 25 Mg Tab 25 Mg PO DIRECTED 15 Days Take 25mg by mouth in the morning and 50mg at bedtime. Morphine ER (Morphine Sulfate) 30 Mg Tab 30 Mg PO Q8HR 0 Days Order to update med list only. Pt has an adequate supply at home. Lamictal (Lamotrigine) 25 Mg Tab 25 Mg PO Q12HR 15 Days Carbamazepine 200 Mg Tab 200 Mg PO BID 15 Days Reported Metoprolol Tartrate 25 Mg Tab 25 Mg PO DAILY Review of Systems Except as stated in HPI: all other systems reviewed are Neg Physical Exam Narrative GENERAL: Well-developed well-nourished male in no acute distress SKIN: Warm and dry. HEAD: Atraumatic. Normocephalic. EYES: Pupils equal and round. No scleral icterus. No injection or drainage. ENT: No nasal bleeding or discharge. Mucous membranes pink and moist. NECK: Trachea midline. No JVD. CARDIOVASCULAR: Regular rate and rhythm. No murmur appreciated. RESPIRATORY: No accessory muscle use. Clear to auscultation. Breath sounds equal bilaterally. GASTROINTESTINAL: Abdomen soft, non-tender, nondistended. Hepatic and splenic margins not palpable. MUSCULOSKELETAL: No obvious deformities. No clubbing. No cyanosis. No edema. NEUROLOGICAL: Awake and alert. No obvious cranial nerve deficits. Motor grossly within normal limits. Normal speech. Data Data Last Documented VS Vital Signs Date Time Temp Pulse Resp B/P (MAP) Pulse Ox O2 Delivery O2 Flow Rate FiO2 01/21/18 20:14 98.6 120 18 145/104 (118) 97 Orders Orders Complete Blood Count With Diff (01/21/18 20:20) Comprehensive Metabolic Panel (01/21/18 20:20) Psych Screen (01/21/18 20:20) Diet Regular Basic (01/22/18 Breakfast) Drug Screen, Random Urine (01/21/18 20:20) Alcohol (Ethanol) (01/21/18 20:20) Olanzapine Inj (Zyprexa Inj) (01/21/18 20:45) Diphenhydramine Inj (Benadryl Inj) (01/21/18 21:00) Labs Laboratory Tests Test 01/21/18 20:20 White Blood Count 11.9 TH/MM3 Red Blood Count 4.96 MIL/MM3 Hemoglobin 14.9 GM/DL Hematocrit 43.8 % Mean Corpuscular Volume 88.3 FL Mean Corpuscular Hemoglobin 30.1 PG Mean Corpuscular Hemoglobin Concent 34.1 % Red Cell Distribution Width 15.4 % Platelet Count 378 TH/MM3 Mean Platelet Volume 8.9 FL Neutrophils (%) (Auto) 78.3 % Lymphocytes (%) (Auto) 11.4 % Monocytes (%) (Auto) 8.8 % Eosinophils (%) (Auto) 0.3 % Basophils (%) (Auto) 1.2 % Neutrophils # (Auto) 9.3 TH/MM3 Lymphocytes # (Auto) 1.4 TH/MM3 Monocytes # (Auto) 1.0 TH/MM3 Eosinophils # (Auto) 0.0 TH/MM3 Basophils # (Auto) 0.1 TH/MM3 CBC Comment DIFF FINAL Differential Comment Blood Urea Nitrogen 25 MG/DL Creatinine 1.26 MG/DL Random Glucose 115 MG/DL Total Protein 8.8 GM/DL Albumin 4.3 GM/DL Calcium Level 10.0 MG/DL Alkaline Phosphatase 106 U/L Aspartate Amino Transf (AST/SGOT) 17 U/L Alanine Aminotransferase (ALT/SGPT) 19 U/L Total Bilirubin 0.4 MG/DL Sodium Level 138 MEQ/L Potassium Level 4.0 MEQ/L Chloride Level 107 MEQ/L Carbon Dioxide Level 18.7 MEQ/L Anion Gap 12 MEQ/L Estimat Glomerular Filtration Rate 62 ML/MIN Urine Opiates Screen NEG Urine Barbiturates Screen NEG Urine Amphetamines Screen NEG Urine Benzodiazepines Screen NEG Urine Cocaine Screen NEG Urine Cannabinoids Screen NEG Ethyl Alcohol Level LESS THAN 3 MG/DL MDM Medical Decision Making Medical Screen Exam Complete: Yes Emergency Medical Condition: Yes Medical Record Reviewed: Yes Differential Diagnosis Acute psychosis, bipolar disorder, schizophrenia, schizoaffective disorder, meningitis, encephalitis, substance-induced mood disorder Narrative Course 47-year-old male who presents under Maradiaga act for psychiatric evaluation of paranoia. Mental health screening discussed with the patient. Psychiatric screen ordered. The patient is medically cleared for psychiatric disposition. Diagnosis Primary Impression: Medical clearance for psychiatric admission Kyler Giron Jan 21, 2018 20:27
[2018-01-21] MEDS ORDERED: OLANZapine IM 10 MG VIAL IM ONE (20:45)
[2018-01-21 20:54] LABS: AUTOMATED NEUTROPHIL # 9.3 TH/MM3 (1.8-7.7); BASOPHIL # 0.1 TH/MM3 (0-0.2); BASOPHIL % 1.2 % (0.0-2.0); EOSINOPHIL % 0.3 % (0.0-4.0); HEMATOCRIT 43.8 % (39.0-51.0); HEMOGLOBIN 14.9 GM/DL (13.0-17.0); LYMPH % 11.4 % (9.0-44.0); LYMPHOCYTE # 1.4 TH/MM3 (1.0-4.8); MEAN CELL VOLUME 88.3 FL (80.0-100.0); MEAN CORPUSCULAR HEMOGLOBIN 30.1 PG (27.0-34.0); MEAN CORPUSCULAR HGB CONC 34.1 % (32.0-36.0); MEAN PLATELET VOLUME 8.9 FL (7.0-11.0); MONO % 8.8 % (0.0-8.0); NEUT % 78.3 % (16.0-70.0); PLATELET COUNT 378 TH/MM3 (150-450); RED BLOOD COUNT 4.96 MIL/MM3 (4.50-5.90); RED CELL DISTRIBUTION WIDTH 15.4 % (11.6-17.2); WHITE BLOOD COUNT 11.9 TH/MM3 (4.0-11.0)
[2018-01-21] MEDS ORDERED: diphenhydrAMINE HCL 50 MG/ML VIAL IM ONE (21:00)
[2018-01-21 21:08] LABS: ALBUMIN 4.3 GM/DL (3.4-5.0); AST (GOT) 17 U/L (15-37); BICARBONATE 18.7 MEQ/L (21.0-32.0); BLOOD UREA NITROGEN 25 MG/DL (7-18); CHLORIDE 107 MEQ/L (98-107); CREATININE 1.26 MG/DL (0.60-1.30); GLOMERULAR FILTRATION RATE 62 ML/MIN (>89); GLUCOSE,RANDOM 115 MG/DL (74-106); SODIUM (NA) 138 MEQ/L (136-145)
[2018-01-21 21:11] LABS: ALKALINE PHOSPHATASE 106 U/L (45-117); ALT (GPT) 19 U/L (12-78); TOTAL BILIRUBIN ADULT 0.4 MG/DL (0.2-1.0); TOTAL PROTEIN 8.8 GM/DL (6.4-8.2)
[2018-01-21 23:31] VITALS: BP 134/82; PULSE 100; RESP 16; TEMP 97.4; O2SAT 100
[2018-01-22] MEDS ORDERED: ACETAMINOPHEN 325 MG TAB PO ONE (02:45)
[2018-01-22 06:34] VITALS: BP 114/69; PULSE 66; RESP 16; TEMP 97.6; O2SAT 100
[2018-01-22 14:15] VITALS: BP 137/77; PULSE 88; RESP 20; TEMP 97.9; O2SAT 95
[2018-01-22 15:35] VITALS: BP 137/77; PULSE 88; RESP 20; TEMP 97.9; O2SAT 95
--- NOTE | 2018-01-22 17:21 | PD ---
History of Present Illness Chief Complaint: Psychiatric Symptoms Time Seen by Provider: 16:45 Travel History International Travel<30 Days: No Contact w/Intl Traveler<30days: No Known affected area: No Legal Status Legal Status: Maradiaga Act Maradiaga Act Signed By: Patricia Roman Maradiaga Act Comment: 2017 @ 1933 History of Present Illness: History of Present Illness HPI This is a 47-year-old, single, male, with history of depression, OCD, alcohol dependence who presents under Maradiaga act initiated by the Police Department. According to his paperwork patient was concerned that he was being followed at [facility]. He was felt to be paranoid and thus he was brought here for further evaluation. The patient believes that during the past week his Facebook account and his other social media counts were hacked and that someone got a hold of his documents including photographs and were posting them over social media. He also reports that his bank account was also hacked. He denies that he ever told the police that he was being followed. He does admit that he believes that someone did in fact get a hold of all his social media counts. EMR. Patient last psychiatric admission was in July. His toxicology is negative. Undetectable blood alcohol level. The patient was monitored in J pod. He presented no behavioral concerns. He denies any suicidal or homicidal ideation. He has been requesting to be discharged because he wants to be able to get home and closed out all his social media. The patient is visibly anxious and concerned over this possible invasion of his privacy. 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 Enforcement he sees to Center at [facility] and that he is medication compliant History of Inpatient Treatment: Yes (Last hospitalization in 2017. ) Guns or firearms in home: No Social History Patient is single. Has completed 4 years of college. Worked in the past as a software development leader. Lives with roommates. Unemployed and on disability. Hx Alcohol Use: Yes Hx Tobacco Use: No Hx Substance Use: No Substance Use Type: Alcohol Hx of Substance Use Treatment: No Family Psychiatric History Grandmother with possible mental illness. Allergies-Medications (Allergen,Severity, Reaction): Coded Allergies: diatrizoate meglumine (Unverified Allergy, Severe, Shortness of Breath, ) gadobenic acid (Unverified Allergy, Severe, Shortness of Breath, 10/04/17) gadodiamide (Unverified Allergy, Severe, Shortness of Breath, 10/04/17) gadoteridol (Unverified Allergy, Severe, Shortness of Breath, 10/04/17) iodixanol (Unverified Allergy, Severe, Shortness of Breath, 10/04/17) iohexol (Unverified Allergy, Severe, Shortness of Breath, 10/04/17) penicillin G (Unverified Allergy, Severe, Shortness of Breath, 10/04/17) Reported Meds & Prescriptions Reported Meds & Active Scripts Active Trazodone (Trazodone HCl) 50 Mg Tab 50 Mg PO HS PRN 14 Days Proventil Hfa 6.7 GM Inh (Albuterol Sulfate) 90 Mcg/Act Aer 2 Puff INH Q6H PRN Deltasone (Prednisone) 20 Mg Tab 20 Mg PO BID Topamax (Topiramate) 25 Mg Tab 25 Mg PO DIRECTED 15 Days Take 25mg by mouth in the morning and 50mg at bedtime. Morphine ER (Morphine Sulfate) 30 Mg Tab 30 Mg PO Q8HR 0 Days Order to update med list only. Pt has an adequate supply at home. Lamictal (Lamotrigine) 25 Mg Tab 25 Mg PO Q12HR 15 Days Carbamazepine 200 Mg Tab 200 Mg PO BID 15 Days Reported Metoprolol Tartrate 25 Mg Tab 25 Mg PO DAILY Mental Status Examination Appearance: Appropriate Consciousness: Alert Orientation: x4 Motor Activity: Normal gait Speech: Unremarkable Language: Adequate Fund of Knowledge: Adequate Attention and Concentration: Adequate Memory: Unremarkable Mood: Anxious Affect: Appropriate Thought Process & Associations: Intact, Logical, Goal directed Thought Content: Appropriate Hallucination Type: None Delusion Type: None Suicidal Ideation: No Suicidal Plan: No Suicidal Intention: No Homicidal Ideation: No Homicidal Plan: No Homicidal Intention: No Insight: Fair [facility] Medical Decision Making Medical Record Reviewed: Yes Assessment/Plan History of Present Illness HPI This is a 47-year-old, single, male, with history of depression, OCD, alcohol dependence who presents under Maradiaga act initiated by the Police Department. According to his paperwork patient was concerned that he was being followed at [facility]. He was felt to be paranoid and thus he was brought here for further evaluation. The patient believes that during the past week his Facebook account and his other social media counts were hacked and that someone got a hold of his documents including photographs and were posting them over social media. He also reports that his bank account was also hacked. He denies that he ever told the police that he was being followed. He does admit that he believes that someone did in fact get a hold of all his social media counts. The patient has previous history with us and has never presented with paranoid thoughts. It is possible that his social media was in fact have asked. It is difficult to determine if this is real or if it is some paranoia. The patient is not verbalizing any intent to harm himself or anyone. He seems quite concerned over the content that has been shared on social media specifically some pictures that he might have taken with his girlfriend. At this time I do not feel that the patient is a danger to himself or others. He is requesting to be discharge. He does not meet criteria to keep him here against his will. The Maradiaga act will be lifted. The patient is strongly encouraged to continue follow-up at [facility]. Lift . Orders Orders Complete Blood Count With Diff (01/21/18 20:20) Comprehensive Metabolic Panel (01/21/18 20:20) Psych Screen (01/21/18 20:20) Diet Regular Basic (01/22/18 Breakfast) Drug Screen, Random Urine (01/21/18 20:20) Alcohol (Ethanol) (01/21/18 20:20) Olanzapine Inj (Zyprexa Inj) (01/21/18 20:45) Diphenhydramine Inj (Benadryl Inj) (01/21/18 21:00) Acetaminophen (Tylenol) (01/22/18 02:45) Diet Regular Basic (01/22/18 Lunch) Diet Regular Basic (01/22/18 Dinner) Results Vital Signs Date Time Temp Pulse Resp B/P (MAP) Pulse Ox O2 Delivery O2 Flow Rate FiO2 01/22/18 14:15 97.9 88 20 137/77 (97) 95 Room Air 01/22/18 06:34 97.6 66 16 114/69 (84) 100 01/21/18 23:31 97.4 100 16 134/82 (99) 100 Room Air 01/21/18 20:14 98.6 120 18 145/104 (118) 97 Laboratory Tests Test 01/21/18 20:20 White Blood Count 11.9 Red Blood Count 4.96 Hemoglobin 14.9 Hematocrit 43.8 Mean Corpuscular Volume 88.3 Mean Corpuscular Hemoglobin 30.1 Mean Corpuscular Hemoglobin Concent 34.1 Red Cell Distribution Width 15.4 Platelet Count 378 Mean Platelet Volume 8.9 Neutrophils (%) (Auto) 78.3 Lymphocytes (%) (Auto) 11.4 Monocytes (%) (Auto) 8.8 Eosinophils (%) (Auto) 0.3 Basophils (%) (Auto) 1.2 Neutrophils # (Auto) 9.3 Lymphocytes # (Auto) 1.4 Monocytes # (Auto) 1.0 Eosinophils # (Auto) 0.0 Basophils # (Auto) 0.1 CBC Comment DIFF FINAL Differential Comment Blood Urea Nitrogen 25 Creatinine 1.26 Random Glucose 115 Total Protein 8.8 Albumin 4.3 Calcium Level 10.0 Alkaline Phosphatase 106 Aspartate Amino Transf (AST/SGOT) 17 Alanine Aminotransferase (ALT/SGPT) 19 Total Bilirubin 0.4 Sodium Level 138 Potassium Level 4.0 Chloride Level 107 Carbon Dioxide Level 18.7 Anion Gap 12 Estimat Glomerular Filtration Rate 62 Urine Opiates Screen NEG Urine Barbiturates Screen NEG Urine Amphetamines Screen NEG Urine Benzodiazepines Screen NEG Urine Cocaine Screen NEG Urine Cannabinoids Screen NEG Ethyl Alcohol Level LESS THAN 3 Diagnosis Primary Impression: OCD (obsessive compulsive disorder) Additional Impressions: Alcohol abuse Adjustment disorder Psychiatrically Cleared: Yes Med/ Other Pt Specific Info: No Change to Meds Disposition: 01 DISCHARGE HOME Condition: Stable Problem Qualifiers Meche Finney Jan 22, 2018 17:21
--- NOTE | 2018-01-22 17:34 | PD ---
Physical Exam Date Seen by Provider: Jan 22, 2018 Time Seen by Provider: 17:33 Narrative 47-year-old male previously medically cleared for psychiatric evaluation after being Maradiaga acted, has been seen and evaluated by psychiatric staff and deemed psychiatrically stable for discharge at this time. Patient remains medically stable for discharge at this time. Follow-up will be based on psychiatric note. Data Data Last Documented VS Vital Signs Date Time Temp Pulse Resp B/P (MAP) Pulse Ox O2 Delivery O2 Flow Rate FiO2 01/22/18 14:15 97.9 88 20 137/77 (97) 95 Room Air Orders Orders Complete Blood Count With Diff (01/21/18 20:20) Comprehensive Metabolic Panel (01/21/18 20:20) Psych Screen (01/21/18 20:20) Diet Regular Basic (01/22/18 Breakfast) Drug Screen, Random Urine (01/21/18 20:20) Alcohol (Ethanol) (01/21/18 20:20) Olanzapine Inj (Zyprexa Inj) (01/21/18 20:45) Diphenhydramine Inj (Benadryl Inj) (01/21/18 21:00) Acetaminophen (Tylenol) (01/22/18 02:45) Diet Regular Basic (01/22/18 Lunch) Diet Regular Basic (01/22/18 Dinner) Labs Laboratory Tests Test 01/21/18 20:20 White Blood Count 11.9 TH/MM3 Red Blood Count 4.96 MIL/MM3 Hemoglobin 14.9 GM/DL Hematocrit 43.8 % Mean Corpuscular Volume 88.3 FL Mean Corpuscular Hemoglobin 30.1 PG Mean Corpuscular Hemoglobin Concent 34.1 % Red Cell Distribution Width 15.4 % Platelet Count 378 TH/MM3 Mean Platelet Volume 8.9 FL Neutrophils (%) (Auto) 78.3 % Lymphocytes (%) (Auto) 11.4 % Monocytes (%) (Auto) 8.8 % Eosinophils (%) (Auto) 0.3 % Basophils (%) (Auto) 1.2 % Neutrophils # (Auto) 9.3 TH/MM3 Lymphocytes # (Auto) 1.4 TH/MM3 Monocytes # (Auto) 1.0 TH/MM3 Eosinophils # (Auto) 0.0 TH/MM3 Basophils # (Auto) 0.1 TH/MM3 CBC Comment DIFF FINAL Differential Comment Blood Urea Nitrogen 25 MG/DL Creatinine 1.26 MG/DL Random Glucose 115 MG/DL Total Protein 8.8 GM/DL Albumin 4.3 GM/DL Calcium Level 10.0 MG/DL Alkaline Phosphatase 106 U/L Aspartate Amino Transf (AST/SGOT) 17 U/L Alanine Aminotransferase (ALT/SGPT) 19 U/L Total Bilirubin 0.4 MG/DL Sodium Level 138 MEQ/L Potassium Level 4.0 MEQ/L Chloride Level 107 MEQ/L Carbon Dioxide Level 18.7 MEQ/L Anion Gap 12 MEQ/L Estimat Glomerular Filtration Rate 62 ML/MIN Urine Opiates Screen NEG Urine Barbiturates Screen NEG Urine Amphetamines Screen NEG Urine Benzodiazepines Screen NEG Urine Cocaine Screen NEG Urine Cannabinoids Screen NEG Ethyl Alcohol Level LESS THAN 3 MG/DL MDM Medical Record Reviewed: Yes Supervised Visit with DEBORAH: Yes Narrative Course 47-year-old male previously medically cleared for psychiatric evaluation after being Maradiaga acted, has been seen and evaluated by psychiatric staff and deemed psychiatrically stable for discharge at this time. Patient remains medically stable for discharge at this time. Follow-up will be based on psychiatric note. Diagnosis Primary Impression: Medical clearance for psychiatric admission Additional Impressions: Alcohol abuse OCD (obsessive compulsive disorder) Adjustment disorder Patient Instructions: General Instructions Disposition: DISCHARGE HOME Condition: Stable Rony Rasmussen Jan 22, 2018 17:34
== END 2018-01-22 17:57 | disposition home or self-care (01) ==
LOC: NEDAMB 19:55 → NEPJ 01-22 17:57
DX: F42.9 Obsessive-compulsive disorder, unspecified (principal); F43.20 Adjustment disorder, unspecified; F10.20 Alcohol dependence, uncomplicated; Y90.0 Blood alcohol level of less than 20 mg/100 ml
CPT/HCPCS: 80053; 80307; 85025; 96372; 99284; J1200

== ENCOUNTER 2018-05-06 18:04 | Inpatient (IN) ==
--- NOTE | 2018-05-06 20:01 | ED ---
HPI General Chief Complaint: Psychiatric Symptoms Stated Complaint: VCSO/Psych Eval Time Seen by Provider: 05/06/18 19:28 Source: patient and EMS Mode of arrival: EMS Limitations: no limitations History of Present Illness HPI Narrative: 48-year-old white male presents as a transfer from [place] [id number] psychiatric evaluation under a Maradiaga act. Patient had presented to [facility] as an overdose on 04/29/18. The patient had admittedly had overdose on his carbamazepine. Patient subsequently became lethargic and was intubated. He was admitted to the ICU. Patient was eventually weaned off the respirator and is vital signs had normalized. Patient 's mentation improved. Patient had been placed under Maradiaga act by his attending physician. He has now been medically cleared and transferred to our facility for psychiatric evaluation. The patient states that he had overdosed because his girlfriend had left him and moved to [place]. He was concerned because she is a chronic alcoholic and has cirrhosis and liver failure. He had quit drinking himself in order to help her. When she had moved she shut her phone off and would not communicate with him. This had made him increasingly depressed. He has suicidal thoughts at that time. After he ingested the overdose he had rethought his overdose and then wanted to get help. He attempted to flag people down in the street but unfortunately he became weak and unresponsive. The patient here states that he is no longer suicidal. He has no intention on hurting himself. He is looking forward to reconnecting with his significant other. The patient denies any homicidal ideation. He denies any medical complaints at this time. Past medical history: Depression, seizure disorder, asthma Surgical history: Noncontributory Social history: Denies alcohol. Denies drugs. Related Data Home Medications Medication Instructions Recorded Confirmed hydrocodone-acetaminophen 5 - 325 tab PO TID PRN 04/25/18 05/06/18 alprazolam [Xanax] 0.25 mg PO TID 05/06/18 05/06/18 divalproex 500 mg PO HS 05/06/18 05/06/18 famotidine 20 mg PO BID 05/06/18 05/06/18 Allergies Allergy/AdvReac Type Severity Reaction Status Date / Time diatrizoate meglumine Allergy Severe Shortness Verified 04/26/18 00:27 of Breath gadobenic acid Allergy Severe Shortness Verified 04/26/18 00:27 of Breath gadodiamide Allergy Severe Shortness Verified 04/26/18 00:27 of Breath gadoteridol Allergy Severe Shortness Verified 04/26/18 00:27 of Breath iodixanol Allergy Severe Shortness Verified 04/26/18 00:27 of Breath iohexol Allergy Severe Shortness Verified 04/26/18 00:27 of Breath penicillin G Allergy Severe Shortness Verified 04/26/18 00:27 of Breath Review of Systems ROS: all other systems reviewed are negative [facility] Medical History Medical History Fracture of left radius and ulna (Acute) Ankle fracture, right (Acute) Epilepsy (Acute) Post traumatic stress disorder (Acute) Post traumatic stress disorder (Acute) Surgical History Surgical History History of back surgery (Acute) Social History Social History Substance History: Active Abuse Smoking Status: Unknown if ever smoked How Often Do You Have a Drink Containing Alcohol: 4 or more times a week Exam Narrative Exam Narrative: GENERAL: Well-nourished, well-developed patient. SKIN: Warm and dry. HEAD: Normocephalic and atraumatic. EYES: No scleral icterus. No injection or drainage. ENT: No nasal drainage noted. Mucous membranes pink. Airway patent. NECK: Supple, trachea midline. Moves head freely without obvious discomfort. CARDIOVASCULAR: Regular rate and rhythm without murmurs, gallops, or rubs. RESPIRATORY: Breath sounds equal bilaterally. No accessory muscle use. GASTROINTESTINAL: Abdomen soft, non-tender, nondistended. EXTREMITIES: No cyanosis or edema. BACK: Nontender without obvious deformity. No CVA tenderness. NEURO: Patient is alert and oriented. no sensorimotor deficits. Nonfocal. Normal speech. PSYCH: No delusions. No auditory or visual hallucinations. Course Initial Documented Vital Signs Temperature 97.8 F 05/06/18 18:55 Pulse Rate 78 05/06/18 18:55 Respiratory Rate 18 05/06/18 18:55 Blood Pressure 149/90 H 05/06/18 18:55 Pulse Oximetry 99 05/06/18 18:55 Last Documented Vital Signs Temperature 97.8 F 05/06/18 18:55 Pulse Rate 78 05/06/18 18:55 Respiratory Rate 18 05/06/18 18:55 Blood Pressure 149/90 H 05/06/18 18:55 Pulse Oximetry 99 05/06/18 18:55 Medical Decision Making MDM Narrative Medical decision making narrative: This is a 48-year-old white male who was seen as an overdose at [facility]. He was placed in the unit on a respirator. He had subsequently been taken off the respirator and he is now been medically cleared and transferred to our facility for psychiatric care. The patient here denies suicidal homicidal ideation. I reviewed the patient's medical record and laboratory tests. Medical Screen Exam Complete: Yes Emergency Medical Condition: Yes Differential Diagnosis Differential Diagnosis: MDM: High Differential diagnoses: Schizophrenia, schizoaffective disorder, bipolar, anxiety, depression, adjustment reaction, mood disorder NOS, ODD, depressive disorder NOS Mental health screening discussed with the patient. Psychiatric screen ordered. Discharge Plan Discharge Disposition Patient Disposition: 30 Still Patient Discharge Condition Condition: Stable Physicians Team ED Provider: Patricia Owens ED Midlevel Provider: Danny Barrett Primary Care Provider: Dena Lee Rxs /Orders / Referrals /Forms Prescriptions: No Action alprazolam [Xanax] 0.25 mg Tablet 0.25 mg PO TID RF: 0 famotidine 20 mg Tablet 20 mg PO BID RF: 0 divalproex 500 mg Tablet Extended Release 24 Hr 500 mg PO HS RF: 0 hydrocodone-acetaminophen 7.5-325 mg Tablet 5 - 325 tab PO TID PRN (Reason: Pain) RF: 0 Status ED Status: Medically Cleared
[2018-05-07] MEDS ORDERED: Bisacodyl 10 MG Supp RECTAL PRN (10:45)
[2018-05-07] MEDS ORDERED: Aluminum/Magnesium/Simethacone Susp 30 ML UDC PO PRN (10:45)
--- NOTE | 2018-05-07 17:39 | P.HPPSY ---
Provisional Diagnosis Admission Date: May 07, 2018 12:05 [place] I.: Major depressive disorder, recurrent, severe, without psychosis, PTSD [place] II.: Deferred [place] III.: Epilepsia Competence Certification of Person's Competence To Provide Express and Informed Consent I have personally examined Jesús Yun, a person being served at [facility] on, May 07, 2018 1736. Express and informed consent means consent voluntarily given in writing, by a competent person, after sufficient explanation and disclosure of the subject matter involved to enable the person to make a knowing and willful decision without any element of force, fraud, deceit, duress, or other form of constraint or coercion. This person is 18 years of age or older, is not now known to be incompetent to consent to treatment with a guardian advocate, and does not have a health care surrogate or proxy currently making medical treatment decisions. I have found this person to be one of the following: [] Competent to provide express and informed consent, as defined above, for voluntary admission to this facility and is competent to provide express and informed consent for treatment. He/she has the consistent capacity to make well reasoned, willful, and knowing decisions concerning his or her medical or mental health treatment. The person fully and consistently understands the purpose of the admission for examination/placement and is fully capable of personally exercising all rights assured under [place] [] Incompetent to provide express and informed consent to voluntary admission, and this is incompetent to provide express and informed consent to treatment. The person must be transferred to involuntary status and a petition for a guardian advocate filed with the Circuit Court. [x] Refusing to provide express and informed consent to voluntary admission but is competent to provide express and informed consent for treatment. The person must be discharged or transferred to involuntary status. Form shall be completed within 24 hours of a person's arrival at the receiving facility and filed in the clinical record of each person: 1. Admitted on a voluntary basis 2. Permitted to provide express and informed consent to his/her own treatment 3. Allowed to transfer from involuntary to voluntary status 4. Prior to permitting a person to consent to his or her own treatment after having been previously found incompetent to consent to treatment. History of Present Illness Capacity: Has capacity History of Present Illness: The patient is a 48-year-old man, Domiciled in [facility]. presents as a transfer from [place] [address] psychiatric evaluation under a [place] act. Patient had presented to [facility] as an overdose on . The patient had admittedly had overdose on his carbamazepine. Patient subsequently became lethargic and was intubated. He was admitted to the ICU. Patient was eventually weaned off the respirator and is vital signs had normalized. Patient's mentation improved. Patient had been placed under [place] act by his attending physician. He has now been medically cleared and transferred to our facility for psychiatric evaluation. The patient states that he had overdosed because his girlfriend had left him and moved to [place]. He was concerned because she is a chronic alcoholic and has cirrhosis and liver failure. He had quit drinking himself in order to help her. When she had moved she shut her phone off and would not communicate with him. This had made him increasingly depressed. He has suicidal thoughts at that time. After he ingested the overdose he had rethought his overdose and then wanted to get help. He attempted to flag people down in the street but unfortunately he became weak and unresponsive. The patient here states that he is no longer suicidal. He has no intention on hurting himself. He is looking forward to reconnecting with his significant other. The patient denies any homicidal ideation. He denies any medical complaints at this time. - Inpatient Certification I certify that the inpatient services were ordered in accordance with Medicare regulations governing the order. This includes certification that hospital inpatient services are reasonable and necessary and in the case of services not specified as inpatient-only under 42 CFR 419.22(n), that they are appropriately provided as inpatient services in accordance to with the 2-midnight benchmark under 43 CFR 412.3(e) I certify that inpatient psychiatric hospital services are medically necessary. Evaluation and treatment and/or diagnostic testing are expected to improve the patient's condition. The patient needs on a daily basis, active treatment furnished directly by or requiring the supervision of inpatient psychiatric facility personnel. Estimated Total Length of Stay (Days): 7 Plans for Post Hospital Care: [facility] - History History Provided By: Patient - Medical History Medical History: Medical History (Last Reviewed 05/06/18 @ 19:59 by ARSLAN Goff) Fracture of left radius and ulna (Acute) Ankle fracture, right Epilepsy Post traumatic stress disorder Post traumatic stress disorder - Surgical History Surgical History: Surgical History (Last Reviewed 05/06/18 @ 19:59 by ARSLAN Goff) History of back surgery - Tobacco History Smoking Status: Unknown if ever smoked - Alcohol History How Often Do You Have a Drink Containing Alcohol: 4 or more times a week - Substance Use History Substance History: Active Abuse Medications and Allergies Active Medications: Active Medications Al Hydrox/Mg Hydrox/Simethicone (Mag-Al Plus Susp Liq) 30 ml PO Q6H PRN PRN Reason: DYSPEPSIA Al Hydroxide/Mg Hydroxide (Milk Of Magnesia Liq) 30 ml PO Q12H PRN PRN Reason: Mild Constipation Alprazolam (Xanax) 0.25 mg PO TID MOHAN Bisacodyl (Dulcolax Supp) 10 mg RECTAL DAILY PRN PRN Reason: SEVERE CONSITIPATION Divalproex Sodium (Depakote Er) 500 mg PO HS MOHAN Famotidine (Pepcid) 20 mg PO BID MOHAN Lactulose (Lactulose Liq) 30 ml PO DAILY PRN PRN Reason: SEVERE CONSITIPATION Senna/Docusate Sodium (Zandra-Colace) 1 tab PO BID MOHAN Sennosides (Senokot) 17.2 mg PO Q12H PRN PRN Reason: Moderate Constipation Venlafaxine HCl (Effexor) 150 mg PO DAILY MOHAN Allergies Allergy/AdvReac Type Severity Reaction Status Date / Time diatrizoate meglumine Allergy Severe Shortness Verified 04/26/18 00:27 of Breath gadobenic acid Allergy Severe Shortness Verified 04/26/18 00:27 of Breath gadodiamide Allergy Severe Shortness Verified 04/26/18 00:27 of Breath gadoteridol Allergy Severe Shortness Verified 04/26/18 00:27 of Breath iodixanol Allergy Severe Shortness Verified 04/26/18 00:27 of Breath iohexol Allergy Severe Shortness Verified 04/26/18 00:27 of Breath penicillin G Allergy Severe Shortness Verified 04/26/18 00:27 of Breath Home Medications Medication Instructions Recorded Confirmed Type famotidine 20 mg PO BID 05/06/18 05/06/18 History Results - Labs CBC & Chem 7: 05/09/18 07:16 05/09/18 07:16 Exam Vital signs: Vital Signs 05/06/18 18:55 05/06/18 23:47 05/07/18 15:42 Temperature 97.8 F 98.3 F 98.4 F Pulse Rate 78 61 77 Respiratory Rate 18 Blood Pressure 149/90 H 101/88 143/75 H Pulse Oximetry 99 99 97 Intake & Output 05/06/18 05/07/18 05/07/18 18:59 06:59 18:59 Weight 75 kg 86.183 kg Other: Weight On Admission 86.183 kg Mental Status Examination Appearance: Appropriate Consciousness: Alert Orientation: x4 Motor Activity: Normal gait Speech: Unremarkable Language: Adequate Fund of Knowledge: Adequate Attention and Concentration: Adequate Memory: Unremarkable Mood: Sad Affect: Sad Thought Process & Associations: Intact Thought Content: Appropriate Hallucination Type: None Delusion Type: None Suicidal Ideation: Yes Suicidal Plan: No Suicidal Intention: No Homicidal Ideation: No Homicidal Plan: No Homicidal Intention: No Insight: Poor Judgment: Poor Assessment and Plan - Assessment (1) Major depression Code(s): F32.9 - Major depressive disorder, single episode, unspecified Status : Acute - Plan Plan: Estimated LOS: [] days On psychiatric evaluation the patient seems to be minimizing symptomatology of depression, he has tried to commit suicide by overdosing. The overdose was little and off for the patient to be intubated in critical care. Patient will be admitted in psychiatry for longitudinal observation, stabilization and safety. No psychotropics at this moment. Transferred to psychiatry. Psychoeducation, supportive motivation. Justification for Continued Inpatient Stay: Admission indicated. (1) Major depression Qualifiers: Major depression recurrence: recurrent Psychotic features: without psychotic features
[2018-05-07] MEDS: Venlafaxine XR 75 MG Capsule PO SCH (18:00)
[2018-05-07] MEDS: ALPRAZolam 0.25 MG Tablet PO SCH (18:00)
[2018-05-07] MEDS: Famotidine 20 MG Tablet PO SCH (21:37)
[2018-05-07] MEDS: Divalproex 500 MG ER Tablet PO SCH (21:37)
[2018-05-07] MEDS: Senna/Docusate Sodium 8.6/50 MG Tablet PO SCH (21:37)
[2018-05-08] MEDS: Famotidine 20 MG Tablet PO SCH ×2 (08:59→21:21)
[2018-05-08] MEDS: Senna/Docusate Sodium 8.6/50 MG Tablet PO SCH (09:02)
[2018-05-08] MEDS: Venlafaxine XR 75 MG Capsule PO SCH (09:57)
[2018-05-08] MEDS: ALPRAZolam 0.25 MG Tablet PO SCH ×2 (09:58→15:02)
--- NOTE | 2018-05-08 12:40 | P.CONPSY ---
Provisional Diagnosis Admission Date: May 07, 2018 12:05 [place] I.: 1. Adjustment disorder with disturbance of emotions and conduct [place] II.: Deferred History of Present Illness Service: Psychiatry Consult date: 05/08/18 Requesting Physician: Raffy Luque Reason for Consult: Second opinion for involuntary psychiatric hospitalization Primary Care Provider: Dena Lee Family Provider: Dena Lee History of Present Illness: From Dr. Luque's H&P: The patient is a 48-year-old man, Domiciled in [facility]. presents as a transfer from [place] [address] psychiatric evaluation under a [place] act. Patient had presented to [facility] as an overdose on . The patient had admittedly had overdose on his carbamazepine. Patient subsequently became lethargic and was intubated. He was admitted to the ICU. Patient was eventually weaned off the respirator and is vital signs had normalized. Patient's mentation improved. Patient had been placed under [place] act by his attending physician. He has now been medically cleared and transferred to our facility for psychiatric evaluation. The patient states that he had overdosed because his girlfriend had left him and moved to [place]. He was concerned because she is a chronic alcoholic and has cirrhosis and liver failure. He had quit drinking himself in order to help her. When she had moved she shut her phone off and would not communicate with him. This had made him increasingly depressed. He has suicidal thoughts at that time. After he ingested the overdose he had rethought his overdose and then wanted to get help. He attempted to flag people down in the street but unfortunately he became weak and unresponsive. The patient here states that he is no longer suicidal. He has no intention on hurting himself. He is looking forward to reconnecting with his significant other. The patient denies any homicidal ideation. He denies any medical complaints at this time. On my examination today, 05/08: Patient seen and examined with nurse. Chart reviewed. I note the patient was sent to [place] in transfer from [facility] under a [place] act. Documentation from outside hospital reviewed. Patient presented there following a carbamazepine overdose. He was seen in consultation by psychologist Dr. Mckeon who recommended transfer to inpatient psychiatric facility once medically cleared. Case discussed with nursing staff. On my examination today, the patient insists that presenting overdose was not suicidal in nature. He says that he was upset with his primary care doctor who had allegedly castigated him for not taking his seizure medication as prescribed. He says that he took an entire day's worth of carbamazepine all at once to prove to his primary care doctor that it makes him dizzy. He says that he then returned later in the day to take his Lamictal but accidentally took more carbamazepine. He denies any suicidal or homicidal ideation at the time. He is quite discharged focused and says that he has to get home to take care of his girlfriend is Alla. He says that Alla is in liver failure but continues to drink, and he needs to watch over her. Apparently, Walter and his illness has been a significant stressor for the patient. He complains of high anxiety. Denies any audiovisual hallucinations. He seems quite irritable on exam. No psychotic material. Remainder of the psychiatric ROS is negative. No acute physical complaints. As noted above, the patient is quite focused on discharge today and becomes somewhat threatening, insinuating that he will involve an senior attorney friend of his if I do not discharge him. Past psychiatric history: Patient reports a history of depression and PTSD. He follows on an outpatient basis at [facility]. He is reportedly prescribed Effexor. He denies a history of psychiatric admissions or suicide attempts. However, I do note that the patient has at least one previous psychiatric admission under my care within our system and also has been seen in the ED for primarily substance related issues by the psychiatric nurse practitioner. Family history: The patient denies a family history of serious mental illness or suicide. Chemical dependency history: The patient insists that he has quit drinking alcohol. He does admit to a history of methamphetamine use. Social history: Patient lives with 2 roommates in a house. He says that these roommates do not pay rent and the electric has been shut off. He is single with no children. He does have a girlfriend. He has an associates degree. He collects [employer]. He denies any access to guns or firearms. He has a pet dog. No specific islam beliefs. Past medical history: The patient reports a history of seizure, most recently 6 or 7 years ago. 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 [facility] - History History Provided By: Patient - Medical History Medical History: Medical History (Last Reviewed 05/06/18 @ 19:59 by ARSLAN Goff) Fracture of left radius and ulna (Acute) Ankle fracture, right Epilepsy Post traumatic stress disorder Post traumatic stress disorder - Surgical History Surgical History: Surgical History (Last Reviewed 05/06/18 @ 19:59 by ARSLAN Goff) History of back surgery - Tobacco History Smoking Status: Never smoker - Alcohol History How Often Do You Have a Drink Containing Alcohol: 2 to 3 times a week - Substance Use History Substance History: No History of Abuse, Past History Medications and Allergies Active Medications: Active Medications Al Hydrox/Mg Hydrox/Simethicone (Mag-Al Plus Susp Liq) 30 ml PO Q6H PRN PRN Reason: DYSPEPSIA Al Hydroxide/Mg Hydroxide (Milk Of Magnesia Liq) 30 ml PO Q12H PRN PRN Reason: Mild Constipation Alprazolam (Xanax) 0.25 mg PO TID [facility] Last Admin: 05/08/18 09:58 Dose: 0.25 mg Bisacodyl (Dulcolax Supp) 10 mg RECTAL DAILY PRN PRN Reason: SEVERE CONSITIPATION Divalproex Sodium (Depakote Er) 500 mg PO HS [facility] Last Admin: 05/07/18 21:37 Dose: 500 mg Famotidine (Pepcid) 20 mg PO BID [facility] Last Admin: 05/08/18 08:59 Dose: 20 mg Lactulose (Lactulose Liq) 30 ml PO DAILY PRN PRN Reason: SEVERE CONSITIPATION Senna/Docusate Sodium (Zandra-Colace) 1 tab PO BID [facility] Last Admin: 05/08/18 09:02 Dose: Not Given Sennosides (Senokot) 17.2 mg PO Q12H PRN PRN Reason: Moderate Constipation Venlafaxine HCl (Effexor Xr) 150 mg PO DAILY [facility] Last Admin: 05/08/18 09:57 Dose: 150 mg Allergies Allergy/AdvReac Type Severity Reaction Status Date / Time diatrizoate meglumine Allergy Severe Shortness Verified 04/26/18 00:27 of Breath gadobenic acid Allergy Severe Shortness Verified 04/26/18 00:27 of Breath gadodiamide Allergy Severe Shortness Verified 04/26/18 00:27 of Breath gadoteridol Allergy Severe Shortness Verified 04/26/18 00:27 of Breath iodixanol Allergy Severe Shortness Verified 04/26/18 00:27 of Breath iohexol Allergy Severe Shortness Verified 04/26/18 00:27 of Breath penicillin G Allergy Severe Shortness Verified 04/26/18 00:27 of Breath Home Medications Medication Instructions Recorded Confirmed Type hydrocodone-acetaminophen 5 - 325 tab PO TID PRN 04/25/18 05/06/18 History alprazolam [Xanax] 0.25 mg PO TID 05/06/18 05/06/18 History divalproex 500 mg PO HS 05/06/18 05/06/18 History famotidine 20 mg PO BID 05/06/18 05/06/18 History Exam Vital signs: Vital Signs 05/07/18 15:42 05/08/18 04:56 Temperature 98.4 F 97.8 F Pulse Rate 77 75 Respiratory Rate 18 16 Blood Pressure 143/75 H 122/72 Pulse Oximetry 97 97 Intake & Output 05/07/18 05/08/18 05/08/18 18:59 06:59 18:59 Weight 86.183 kg Other: Weight On Admission 86.183 kg Narrative: Physical examination completed by ED provider. On my examination today, the patient appears to be in no acute physical distress. No motor abnormalities noted. No signs of withdrawal noted. No ictal activity noted. Labs and vital signs reviewed. Labs from outside hospital reviewed. Mental Status Examination Appearance: Appropriate Consciousness: Alert, Vigilant Orientation: x4 Motor Activity: Normal gait Speech: Unremarkable Language: Adequate Fund of Knowledge: Adequate Attention and Concentration: Adequate Memory: Unremarkable Mood: Oppositional, Irritable Affect: Irritable, Other (Dysphoric) Thought Process & Associations: Intact Thought Content: Appropriate Hallucination Type: None Delusion Type: None Suicidal Ideation: No (Unreliable to contract for safety) Suicidal Plan: No Suicidal Intention: No Homicidal Ideation: No Homicidal Plan: No Homicidal Intention: No Insight: Poor Judgment: Poor Assessment and Plan - Assessment (1) Adjustment disorder with mixed disturbance of emotions and conduct Code(s): F43.25 - Adjustment disorder with mixed disturbance of emotions and conduct Status: Acute - Plan Plan: Given the circumstances of the patient's presentation here and his presentation on my examination today, I concur with Dr. Luque that the patient meets criteria for involuntary psychiatric hospitalization under the [place] act. Main concern here is for ongoing risk of harm to self. Although conceivable, the patient's report of his presenting overdose seems less likely. It seems more likely to this provider that the patient was distressed, perhaps at his girlfriends serious illness and ongoing alcohol use, and elected to make an impulsive gestural overdose. I will titrate the patient's Effexor to Effexor XR 75 mg daily to target dysphoria. I will continue the patient's Depakote ER 500 mg at bedtime and his Pepcid. Seizure precautions. The patient does not wish to be on a habit-forming anxiolytic and so I will replace his low dose Xanax with Atarax. We will monitor for any signs of withdrawal. Check updated CBC, CMP. Counselor to obtain collateral information. Continue to monitor on the inpatient unit. Continue other medications and care as ordered. Justification for Continued Inpatient Stay: Monitoring for impairment in safety. Medication changes. Discharge Planning: Pending outcome of observation. Request Healthcare Surrogate/Guardian Advocate?: No
[2018-05-08] MEDS: Divalproex 500 MG ER Tablet PO SCH (21:21)
[2018-05-08] MEDS: Melatonin 5 MG Tablet PO PRN (21:32)
[2018-05-09 08:23] LABS: Baso # (Auto) 0.1 th/mm3 (0.0-0.2); Baso % (Auto) 1.2 % (0.0-2.0); Eos # (Auto) 0.1 th/mm3 (0.0-0.4); Hematocrit 38.7 % (39.0-51.0); Hemoglobin 13.5 gm/dL (13.0-17.0); Lymph # (Auto) 1.6 th/mm3 (1.0-4.8); Lymph % (Auto) 27.2 % (9.0-44.0); Mean Corpuscular HGB Conc 34.9 % (32.0-36.0); Mean Corpuscular Hemoglobin 30.2 pg (27.0-34.0); Mean Corpuscular Volume 86.4 fL (80.0-100.0); Mono # (Auto) 0.7 th/mm3 (0.0-0.9); Mono % (Auto) 11.8 % (0.0-8.0); Neut # (Auto) 3.5 th/mm3 (1.8-7.7); Neut % (Auto) 58.8 % (16.0-70.0); Platelet Count 194 th/mm3 (150-450); Red Blood Count 4.48 mil/mm3 (4.50-5.90); Red Cell Distribution Width 14.9 % (11.6-17.2); White Blood Count 5.9 th/mm3 (4.0-11.0)
[2018-05-09] MEDS: Venlafaxine XR 75 MG Capsule PO SCH (08:38)
[2018-05-09] MEDS: Famotidine 20 MG Tablet PO SCH ×2 (08:38→20:29)
[2018-05-09 08:53] LABS: Platelet Estimate Normal (Normal); Platelet Morphology Clumped (Normal)
[2018-05-09 08:56] LABS: Albumin 2.9 g/dL (3.4-5.0); Anion Gap 9 meq/L (5-15); Aspartate Aminotransferase 21 U/L (15-37); Blood Urea Nitrogen 9 mg/dL (7-18); Calcium 8.4 mg/dL (8.5-10.1); Carbon Dioxide 25.7 meq/L (21.0-32.0); Chloride 106 meq/L (98-107); Glomerular Filtration Rate Greater Than 89 mL/min (>89); Glucose,Random 76 mg/dL (74-106); Potassium 3.7 meq/L (3.5-5.1)
[2018-05-09 09:01] LABS: Alanine Aminotransferase 22 U/L (12-78); Alkaline Phosphatase 70 U/L (45-117); Sodium 141 meq/L (136-145); Total Protein 6.5 g/dL (6.4-8.2)
--- NOTE | 2018-05-09 13:30 | P.PNPSY ---
Subjective Remarks: Pt seen and discussed with staff. Chart reviewed. Pt was admitted for OD with tegretol. He has been isolative to his room and does not engage in unit activities or interact with peers.He is flat and dysphoric but denies SI/HI. Mental Status Examination Appearance: Appropriate Consciousness: Alert, Vigilant Orientation: x4 Motor Activity: Normal gait Speech: Unremarkable Language: Adequate Fund of Knowledge: Adequate Attention and Concentration: Adequate Memory: Unremarkable Mood: Anxious, Irritable Affect: Other (wide eyed stare) Thought Process & Associations: Intact Thought Content: Appropriate Hallucination Type: None Delusion Type: None Suicidal Ideation: No (Unreliable to contract for safety) Suicidal Plan: No Suicidal Intention: No Homicidal Ideation: No Homicidal Plan: No Homicidal Intention: No Insight: Poor Judgment: Poor Assessment and Plan - Assessment (1) Adjustment disorder with mixed disturbance of emotions and conduct Code(s): F43.25 - Adjustment disorder with mixed disturbance of emotions and conduct Status: Acute - Plan Plan: Continue current tx plan Justification for Continued Inpatient Stay: monitoring for safety Request Healthcare Surrogate/Guardian Advocate?: No
[2018-05-09] MEDS: Divalproex 500 MG ER Tablet PO SCH (20:29)
[2018-05-09] MEDS: Melatonin 5 MG Tablet PO PRN (20:31)
[2018-05-10] MEDS: Venlafaxine XR 75 MG Capsule PO SCH (08:53)
[2018-05-10] MEDS: Famotidine 20 MG Tablet PO SCH ×2 (08:53→20:38)
--- NOTE | 2018-05-10 11:15 | P.PNPSY ---
Subjective Remarks: Medical record reviewed and discussed with nursing staff. ARCHIE Cleaning and I met with patient in his room. Patient is lying in bed and napping. He states that he has been in a relationship for four years and she moved to [place] and this is why he overdosed. He denies SI/HI. States he is feeling alot better. Sleeping is intermittent as he states he has alot on his mind. Eating and participating in activities on the unit. Review of Systems All other systems reviewed negative except as stated in HPI Mental Status Examination Appearance: Appropriate Consciousness: Alert, Vigilant Orientation: x4 Motor Activity: Normal gait Speech: Unremarkable Language: Adequate Fund of Knowledge: Adequate Attention and Concentration: Adequate Memory: Unremarkable Mood: Anxious, Irritable Affect: Other (wide eyed stare) Thought Process & Associations: Intact Thought Content: Appropriate Hallucination Type: None Delusion Type: None Suicidal Ideation: No (Unreliable to contract for safety) Suicidal Plan: No Suicidal Intention: No Homicidal Ideation: No Homicidal Plan: No Homicidal Intention: No Insight: Poor Judgment: Poor Assessment and Plan - Assessment (1) Adjustment disorder with mixed disturbance of emotions and conduct Code(s): F43.25 - Adjustment disorder with mixed disturbance of emotions and conduct Status: Acute - Plan Plan: Continue current tx plan Justification for Continued Inpatient Stay: Moving patient to a less restrictive environment may result in his decompensation. Request Healthcare Surrogate/Guardian Advocate?: No
[2018-05-10] MEDS: Divalproex 500 MG ER Tablet PO SCH (20:38)
[2018-05-10] MEDS: Melatonin 5 MG Tablet PO PRN (20:38)
[2018-05-11] MEDS: Famotidine 20 MG Tablet PO SCH ×2 (08:24→21:39)
[2018-05-11] MEDS: Venlafaxine XR 75 MG Capsule PO SCH (08:24)
--- NOTE | 2018-05-11 10:44 | P.PNPSY ---
Subjective Remarks: Patient seen and examined with nurse. Chart reviewed. Case discussed with nursing staff who reports patient remains fairly anxious and worried about his girlfriend. He has been using Atarax morning and night. On my examination today, the patient continues to complain of high anxiety, particularly focused on the well-being of his girlfriend. He says that he has been unable to reach her and this is heightening his anxiety. He expresses gratitude for not being discharged before the weekend as he had asked as he feels like he needed this hospitalization. Mood is improving with medications. Denies any SI or HI. No side effects from medications. No physical complaints. Vital Signs Temp Pulse Resp BP Pulse Ox 05/11/18 05:21 98.1 F 61 16 106/68 96 05/10/18 17:36 98.5 F 80 18 135/86 97 Intake and Output 05/10/18 05/11/18 05/11/18 22:59 06:59 14:59 Other: Date of Last Bowel Movement 05/10/18 Weight 84.9 kg Labs reviewed. No new labs. Review of Systems All other systems reviewed negative except as stated in HPI Mental Status Examination Appearance: Appropriate Consciousness: Alert Orientation: x4 Motor Activity: Normal gait Speech: Unremarkable Language: Adequate Fund of Knowledge: Adequate Attention and Concentration: Adequate Memory: Unremarkable (Grossly intact on clinical exam) Mood: Anxious Affect: Anxious Thought Process & Associations: Intact Thought Content: Appropriate Hallucination Type: None Delusion Type: None Suicidal Ideation: No Suicidal Plan: No Suicidal Intention: No Homicidal Ideation: No Homicidal Plan: No Homicidal Intention: No Insight: Poor Judgment: Poor Assessment and Plan - Assessment (1) Adjustment disorder with mixed disturbance of emotions and conduct Code(s): F43.25 - Adjustment disorder with mixed disturbance of emotions and conduct Status: Acute - Plan Plan: Schedule Atarax 50mg BID to manage anxiety. Continue Effexor as ordered. Continue Depakote as ordered and check a pre-dose Depakote and ammonia level this evening. Continue to monitor on the inpatient unit. Continue other care as ordered. Justification for Continued Inpatient Stay: Medication changes. High risk for decompensation in less restrictive environment. Discharge Planning: Possible discharge tomorrow, Friday. Request Healthcare Surrogate/Guardian Advocate?: No
[2018-05-11] MEDS: Divalproex 500 MG ER Tablet PO SCH (21:39)
[2018-05-12] MEDS: Venlafaxine XR 75 MG Capsule PO SCH (08:16)
[2018-05-12] MEDS: Famotidine 20 MG Tablet PO SCH ×2 (08:16→21:31)
--- NOTE | 2018-05-12 11:46 | P.PNPSY ---
Subjective Remarks: Patient seen and examined with nurse. Chart reviewed. Case discussed with nursing staff. It has been brought to my attention by staff that a few weeks ago, the patient broke into the house of a charge nurse here at [facility] for unclear reasons. Case discussed in treatment team. Counselor relates that she has spoken with patient's friend Oni who has shared that he was not aware that the patient even had a female partner and that the patient's house is in disarray. On my exam, patient does not deny entering the house of the fingerer. He says he was there "looking for Alla," his reported female partner. When I asked him how he selected that house in particular he says "something led me there." He says he had been using drugs at the time, namely methamphetamine. We discuss collateral from friend who was not aware that female partner existed, and patient insists that friend must be mistaken as Oni should be aware of Alla's existence. Patient seems particularly anxious when discussing these topics, although he does say that the Atarax helped a little bit with his anxiety. Patient does remain concerned because he says he is unable to reach Alla. He does not describe any SI or HI at this time. No side effects from medications. No physical complaints. Vital Signs Temp Pulse Resp BP Pulse Ox 05/12/18 05:39 97.7 F 69 17 114/70 97 05/11/18 17:41 98.0 F 86 16 119/75 95 Intake and Output 05/11/18 05/12/18 05/12/18 22:59 06:59 14:59 Other: Date of Last Bowel Movement 05/11/18 Laboratory Results - last 48 hr 05/11/18 05/11/18 19:06 19:06 Ammonia 33 H Valproic Acid 42 L Labs reviewed. Depakote level somewhat low. Ammonia level borderline high without any evidence of hyperammonemic encephalopathy. Review of Systems All other systems reviewed negative except as stated in HPI Mental Status Examination Appearance: Appropriate Consciousness: Alert Orientation: x4 Motor Activity: Normal gait, Other (No motor abnormalities noted) Speech: Unremarkable Language: Adequate Fund of Knowledge: Adequate Attention and Concentration: Adequate Memory: Unremarkable (Grossly intact on clinical exam) Mood: Anxious Affect: Anxious Thought Process & Associations: Circumstantial Thought Content: Bizarre thinking Hallucination Type: None Delusion Type: None Suicidal Ideation: No Homicidal Ideation: No Insight: Poor Judgment: Poor Assessment and Plan - Assessment (1) Adjustment disorder with mixed disturbance of emotions and conduct Code(s): F43.25 - Adjustment disorder with mixed disturbance of emotions and conduct Status: Acute - Plan Plan: New information regarding patient's behavior outside of hospital setting is quite concerning. Patient apparently entered into a house without permission looking for his female partner, whose existence is now called into question with collateral obtained by the counselor. I am concerned that we are dealing with some sort of psychotic process or perhaps a neurocognitive disorder. My concern here is that the patient may continue to try to look for Alla and put himself or others at risk by entering other peoples' houses without permission. I will begin working patient up for altered mental status to include MRI brain , EEG, B12, thiamine/folate, RPR, HIV. TSH recently obtained and was wnl. I do not believe that the patient's very mild hyperammonemia is leading to altered mental status. Request neuropsychological evaluation. I will titrate patient's Depakote to bring level within the therapeutic range and plan to recheck a level after the appropriate interval. I did offer the patient empirical antipsychotic therapy, but he has declined. Continue to monitor on inpatient unit. Request ADL assessment by OT. Counselor to obtain further collateral. Charge nurse in question is not coming on the unit while patient is inpatient. Continue other medications and care as ordered. Justification for Continued Inpatient Stay: Possible impairment in reality construction. Concern for possible impairment in safety. Risk for decompensation in less restrictive environment. Discharge Planning: Pending further observation. [address] . Request Healthcare Surrogate/Guardian Advocate?: No
--- NOTE | 2018-05-12 18:39 | XR ---
EXAM DATE: 05/12/2018 12:00 AM EDT AGE/SEX: 48 years / Male INDICATIONS: Clear for MRI. CLINICAL DATA: This is the patient's initial encounter. Patient reports that signs and symptoms have been present for 1 day and indicates a pain score of 0/10. MEDICAL/SURGICAL HISTORY: None. None. COMPARISON: No prior exams available for comparison. FINDINGS: The anastomosis suture in the left upper quadrant. No dilated loops of small bowel. Osseous structur es are intact. The visualized lower lungs are clear. No spinal stimulator hardware seen. CONCLUSION: No contraindication to MRI seen. Electronically signed by: Alvarado Rodriguez MD 05/12/2018 6:38 PM EDT
[2018-05-12] MEDS: Melatonin 5 MG Tablet PO PRN (21:31)
[2018-05-12] MEDS: Divalproex 250 MG ER Tablet PO SCH (21:31)
--- NOTE | 2018-05-12 23:15 | MR ---
EXAM DATE: 05/12/2018 6:41 PM EDT AGE/SEX: 48 years / Male INDICATIONS: . Psychosis. CLINICAL DATA: This is the patient's initial encounter. Patient reports that signs and symptoms have been present for 2 days and indicates a pain score of 2/10. MEDICAL/SURGICAL HISTORY: . Depression. . Forearm sx, Rt ACL repair, Left FA nerve reduction. COMPARISON: No prior exams available for comparison. TECHNIQUE: Multiplanar, multisequence examination of the brain was performed without contrast. FINDINGS: Cerebrum: The ventricles are normal for age. No evidence of midline shift, mass lesion, hemorrhage or acute infarction. No extraaxial fluid collections are seen. The pituitary gland and suprasellar cistern are normal in configuration. White Matter: No significant signal abnormalities are seen in the white matter. Posterior Fossa: The cerebellum and brainstem are intact. The 4th ventricle is midline. The cerebel lopontine angle is unremarkable. The cerebellar tonsils are normal in position. Diffusion Imaging: No focal areas of restricted diffusion are seen. No evidence of acute infarction . Extracranial: The visualized portions of the orbits and paranasal sinuses are unremarkable. CONCLUSION: Brain MRI within normal limits. Electronically signed by: Colton Worthy MD 05/12/2018 11:13 PM EDT
[2018-05-13] MEDS: Venlafaxine XR 75 MG Capsule PO SCH (09:01)
[2018-05-13] MEDS: Famotidine 20 MG Tablet PO SCH ×2 (09:01→21:11)
--- NOTE | 2018-05-13 10:33 | P.PNPSY ---
Subjective Remarks: Patient seen and examined with counselor. Chart reviewed. Case discussed with nursing staff. Case discussed with counselor. Counselor does relate that she has spoken further with patient's friend who now corroborates the existence of Alla but says that their relationship is complex. On my examination today, the patient continues to complain of anxiety. He says that he feels that his psychotropic medications are losing efficacy. He complains of some irritability. He denies SI or HI. He says that he has not tried to reach out to Alla today. No side effects from medications. Agreeable to titration of Effexor. No physical complaints. Vital Signs Temp Pulse Resp BP Pulse Ox 05/13/18 06:00 97.7 F 61 16 126/71 98 05/12/18 17:33 98.4 F 75 17 132/71 99 Intake and Output 05/12/18 05/13/18 05/13/18 22:59 06:59 14:59 Intake Total 480 / 480 480 / 480 Balance 480 / 480 480 / 480 Intake: Oral 480 / 480 480 / 480 Laboratory Results - last 24 hr 05/12/18 05/12/18 05/12/18 12:54 12:54 12:54 Vitamin B12 298 RPR Nonreactive HIV 1&2 Ab/P24 Ag 4thGn Nonreactive Labs reviewed. AMS workup so far unrevealing. EEG read as normal. Impressions Abdomen X-Ray 05/12/18 00:00 CONCLUSION: No contraindication to MRI seen. Head MRI 05/12/18 00:00 CONCLUSION: Brain MRI within normal limits. Review of Systems All other systems reviewed negative except as stated in HPI Mental Status Examination Appearance: Appropriate Consciousness: Alert Orientation: x4 Motor Activity: Normal gait, Other (No abnormal motor movements noted. No ictal activity noted.) Speech: Unremarkable Language: Adequate Fund of Knowledge: Adequate Attention and Concentration: Adequate Memory: Unremarkable (Grossly intact on clinical exam) Mood: Anxious Affect: Anxious Thought Process & Associations: Intact Thought Content: Appropriate Hallucination Type: None Delusion Type: None Suicidal Ideation: No Suicidal Plan: No Suicidal Intention: No Homicidal Ideation: No Homicidal Plan: No Homicidal Intention: No Insight: Poor Judgment: Poor Assessment and Plan - Assessment (1) Adjustment disorder with mixed disturbance of emotions and conduct Code(s): F43.25 - Adjustment disorder with mixed disturbance of emotions and conduct Status: Acute - Plan Plan: Titrate Effexor to 112.5mg/day to target residual symptoms. Follow-up outstanding laboratories. Neuropsychology input noted and appreciated. Continue other medications and care as ordered. Justification for Continued Inpatient Stay: Medication changes. Risk for decompensation in less restrictive environment. Discharge Planning: [address] tomorrow. Request Healthcare Surrogate/Guardian Advocate?: No
--- NOTE | 2018-05-13 12:54 | MG ---
cc: Morteza Parekh MD EEG NUMBER: [id number] INDICATIONS: History of seizures; 48-year-old man, overdosed on Tegretol; alcohol use, Effexor, melatonin. FINDINGS: A 9-10 Hz, 60 microvolt symmetric posterior rhythm is seen. The recording overall is synchronous and symmetric. No hemisphere asymmetries are noted. Photic stimulation was performed without significant posterior driving. Hyperventilation was performed with good effort without change in the background. IMPRESSION: Normal awake electroencephalogram. No evidence for a focal or diffuse abnormality. Morteza Parekh MD DJM/primo , 12:19 PM , 12:24 PM
--- NOTE | 2018-05-13 13:19 | P.NPEVAL ---
Disclaimer Patient was given an explanation of the nature and purpose of the evaluation. Patient agreed to proceed with the evaluation and treatment plan. History - Reason for Referral The patient is a 48 year old right handed male who was admitted to the Psychiatry Unit of [facility] on 05/07/2018 under [place] [address]. The patient initially presented to [facility] on 04/29/2018 following a suicide attempt by overdose, and was admitted to the ICU, eventually weaned and his mentation improved. This patient has a past medical history of epilepsy, PTSD and history of methamphetamine use. He is originally from [place], but has lived in [place] for several years. he reported that he sustained a concussion vs. mild TBI in high school from a football injury that resulted in a seizure disorder. He reported that he has not worked since a work related accident where he fell off a roof after experiencing a seizure event. He is single, never and has no children. He reported that his significant other has a severe drinking problem and has stopped talking to him, which precipitated the suicide attempt. He has an associates degree, earned average grades, and no history of learning difficulties. He is referred for baseline neuropsychological evaluation to assess cognitive, behavioral and emotional aspects of his condition, and to provide treatment recommendations. - Additional Psychosocial History Smoking Status: Never smoker Marital status: Single Education Level: >12 Years Employment Status: Unemployed Living Arrangement Prior to Admission: Lives Alone Living Arrangement Prior to Admission: Alone Hand Dominance: Right PMFSH - History History Provided By: Patient - Medical History Medical History: Medical History (Last Reviewed 05/06/18 @ 19:59 by ARSLAN Goff) Fracture of left radius and ulna (Acute) Ankle fracture, right Epilepsy Post traumatic stress disorder Post traumatic stress disorder - Surgical History Surgical History: Surgical History (Last Reviewed 05/06/18 @ 19:59 by ARSLAN Goff) History of back surgery - Tobacco History Smoking Status: Never smoker - Alcohol History How Often Do You Have a Drink Containing Alcohol: 2 to 3 times a week - Substance Use History Substance History: No History of Abuse, Past History Medications Active Medications Al Hydrox/Mg Hydrox/Simethicone (Mag-Al Plus Susp Liq) 30 ml PO Q6H PRN PRN Reason: DYSPEPSIA Al Hydroxide/Mg Hydroxide (Milk Of Magnesia Liq) 30 ml PO Q12H PRN PRN Reason: Mild Constipation Divalproex Sodium (Depakote Er) 750 mg PO HS [facility] Last Admin: 05/12/18 21:31 Dose: 750 mg Famotidine (Pepcid) 20 mg PO BID [facility] Last Admin: 05/13/18 09:01 Dose: 20 mg Hydroxyzine HCl (Atarax) 50 mg PO Q6H PRN PRN Reason: ANXIETY Last Admin: 05/11/18 17:48 Dose: 50 mg Hydroxyzine HCl (Atarax) 50 mg PO BID [facility] Last Admin: 05/13/18 09:01 Dose: 50 mg Melatonin (Melatonin) 5 mg PO HS PRN PRN Reason: INSOMNIA Last Admin: 05/12/18 21:31 Dose: 5 mg Venlafaxine HCl (Effexor Xr) 75 mg PO DAILY [facility] Last Admin: 05/13/18 09:01 Dose: 75 mg Mental Status Assessment - Mental Status Orientation: oriented to: Self, Place, Time, Situation Mental Status: WFL: Thought processing, Language/interactions, Variable: Attention, Impaired: Learning/memory, Problem-solving Absent: Hallucinations, Delusions Adjustment/Coping Assessment - Adjustment/Coping Adjustment/Coping: Mild: Awareness, Insight, Moderate: Depression - Observation In terms of emotional functioning, the patient demonstrated challenges. This patient demonstrated no signs of agitation, impulsivity or disinhibition, nor was there remarkable evidence of a formal thought disorder or psychosis. There was evidence of depression or anxiety. The Geriatric Depression Scale-Short Form was administered given the ease to which it is administered to persons with known neurological pathology, and the patient endorsed 11 of 15 symptoms, which falls within the moderate to severely depressed range. Thought content was free from suicidal, homicidal or paranoid ideation, and thought processes were logical and goal-directed. The patients mood was dysthymic, and his affect was stable yet worrisome. The patient appears to possess some deficits of insight and awareness into his situation and within the limits of this brief evaluation, questionable judgment. Effort Effort: Average Cognition Assessment - Attention/Processing Speed Rating: WFL: Attention/processing, Language, Visual perception, Spatial judgment , Variable: Executive, Awareness - insight adjustment, Impaired: Immediate & delayed memory Observation: The patient was alert and oriented to person, place, time and circumstances surrounding the recent hospitalization. The Mini-Mental State Exam was administered, and the patient obtained a score of 30 out of 30 points, which falls in the [] range. However, on further evaluation, specific deficits were identified. In terms of attention skills, the patient exhibited normal abilities . The patient was able to remain on task and remember basic and complex verbal instructions. The patient was able to spell the word WORLD backwards and complete basic mathematical problems without difficulty. In terms of memory functioning, the patient exhibited mild challenges. The patients initial registration of verbal information was normal, and the patient was able to improve his memory with repetition. However after a period of delay, the patient was unable to recall this information from memory to expected levels. More specifically, on the Luria Memory Words Test-Short Form, the patients trial one performance was 5 of 7 words, trial five performance was 7 of 7 words , the patients Total Learning score was 31 (above cut-off), but the patients Delayed recall score was 3 of 7 words (below cut-off). In contrast, the patient s ability to recall verbal information in a paragraph format was considered normal, as he was able to recall the majority of this information after a brief delay. In terms of speech and language skills, the patient demonstrated normal abilities. The patients initiated spontaneous conversation throughout the assessment. Speech was characterized by adequate prosody, grammar, articulation , volume and rate. No remarkable dysnomic or paraphasic errors were noted either during conversational speech or on confrontation naming tasks. Reading recognition skills were adequate, as were writing skills. He earned a standard score of 100 (percentile rank of 50) on a test of reading recognition, which is consistent with baseline expectations. The patients comprehension for basic one - and two-stage commands was normal. In terms of problem-solving skills, the patient exhibited some minor challenges. The patients ability to understand abstraction reasoning was not normal, as he experienced difficulties abstracting essential shared characteristics of objects and concepts. Mathematical reasoning skills were normal,. Speed of information processing, as evaluated by both the Letter and Category Fluency Tests was normal. Finally , there was no evidence of ideomotor apraxia or constructional difficulties during this brief evaluation. Summary/Diagnosis - Summary/Impressions Summary: Neuropsychological evaluation results indicate a mild memory disorder and impaired ability to abstract essential shared characteristic of objects and concepts which are inconsistent with the normal aging process. Emotionally, he endorses moderate to severe levels of clinical depression. 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 The overall constellation of findings in combination with his clinical history is consistent with a mild neurocognitive disorder, likely related to his epilepsy and pharmacological management of such. Recommendations Recommendations: From a neurocognitive standpoint, this patient does have requisite cognitive decision making capacity, but he does have underlying psychological deficit that may preclude his decision making capacity, specifically his depressive disorder and personality disorder. He certainly requires continued psychiatric evaluation and treatment of his psychiatric conditions. Given the neurocognitive deficits identified, he may benefit from a neuroimaging profile to ascertain whether there are structural findings to account for the memory deficits. Continued neurological treatment of his epilepsy condition is recommended.
--- NOTE | 2018-05-13 15:14 | P.TTN ---
- Patient Problems Problems: 1. Discharge planning 2. Medication compliance 3. Knowledge deficit 4. Lack of coping skills - Progress Toward Goals Provider Present: Dr. Rand Carbajal Provider Input: 05/12/18 will discuss if more collateral is available and re- assure that he is able to care for self/does not have concern for mental illness that needs further stabilization. patient is still having some underlying symptoms leaving concerns with presenting history of being in the home of a staff member and wearing their clothes. neurology is consulted Psychiatric Counselors Present: Marzena Esquivel LCSW (attempted to call collateral , he wants help with services especially power bill, set up with care coordination) Group Spec/RT/OT/AGUILAR Present: JOSÉ MIGUEL Escobar (needs encouragement to attend groups, isolates to room , select group activities ) - Documentation Teaching Recipient: Patient
[2018-05-13] MEDS: Divalproex 250 MG ER Tablet PO SCH (21:11)
[2018-05-13] MEDS: Melatonin 5 MG Tablet PO PRN (21:17)
[2018-05-14] MEDS: Famotidine 20 MG Tablet PO SCH ×2 (09:53→21:55)
[2018-05-14] MEDS: Venlafaxine XR 75 MG Capsule PO SCH (09:54)
[2018-05-14] MEDS: Venlafaxine XR 37.5 MG Capsule PO SCH (09:54)
--- NOTE | 2018-05-14 10:47 | P.PNPSY ---
Subjective Remarks: Patient seen and examined. Chart reviewed. Case discussed with nurse and counselor. On my examination today, patient seems more or less unchanged today. He is somewhat anxious and dysphoric. He perseverates on his diet and says that he cannot eat what is brought for him; I will request a dietitian consultation. No psychotic material. No side effects from medications. No physical complaints. Vital Signs Temp Pulse Resp BP Pulse Ox 05/14/18 05:51 98.1 F 57 L 16 100/58 L 98 05/13/18 18:04 98.0 F 86 130/68 97 Intake and Output 05/13/18 05/14/18 05/14/18 22:59 06:59 14:59 Intake Total 240 / 240 Balance 240 / 240 Intake: Oral 240 / 240 Other: Date of Last Bowel Movement 05/11/18 Weight 85.4 kg Laboratory Results - last 24 hr 05/12/18 12:54 Thiamine 126 Labs reviewed. Review of Systems All other systems reviewed negative except as stated in HPI Mental Status Examination Appearance: Appropriate Consciousness: Alert Orientation: x4 Motor Activity: Other (No motoric abnormalities or ictal activity noted.) Speech: Unremarkable Language: Adequate Fund of Knowledge: Adequate Attention and Concentration: Adequate Memory: Unremarkable (Grossly intact on clinical exam) Mood: Anxious Affect: Anxious Thought Process & Associations: Intact Thought Content: Appropriate Hallucination Type: None Delusion Type: None Suicidal Ideation: No Suicidal Plan: No Suicidal Intention: No Homicidal Ideation: No Homicidal Plan: No Homicidal Intention: No Insight: Poor Judgment: Poor Assessment and Plan - Assessment (1) Adjustment disorder with mixed disturbance of emotions and conduct Code(s): F43.25 - Adjustment disorder with mixed disturbance of emotions and conduct Status: Acute - Plan Plan: Patient received increased dose of Effexor today, tolerating it well. Continue this medication and other psychotropics as ordered. Plan to check a Depakote and ammonia level tomorrow evening. Dietitian consultation. Continue to monitor on the inpatient unit. Continue other medications and care as ordered. Patient's case was presented to the [place] [address] court and placed in continuance for 1 week. Patient retains capacity to consent for medication. Justification for Continued Inpatient Stay: Risk for decompensation in less restrictive environment. Discharge Planning: Pending psychiatric stabilization Request Healthcare Surrogate/Guardian Advocate?: No
[2018-05-14] MEDS: Divalproex 250 MG ER Tablet PO SCH (21:55)
[2018-05-14] MEDS: Melatonin 5 MG Tablet PO PRN (21:56)
[2018-05-15] MEDS: Venlafaxine XR 75 MG Capsule PO SCH (09:06)
[2018-05-15] MEDS: Famotidine 20 MG Tablet PO SCH ×2 (09:07→21:24)
[2018-05-15] MEDS: Venlafaxine XR 37.5 MG Capsule PO SCH (09:07)
--- NOTE | 2018-05-15 13:40 | P.PNPSY ---
Subjective Remarks: Patient seen and examined. Chart reviewed. Case discussed with staff. On my examination today, the patient is pleased to have met with the dietitian. Anxiety level is decreasing although he remains a little bit worried about financial issues related to his house, which he is subletting. He denies any suicidal or homicidal ideation. He has not made contact with Alla but says that he will not persist in efforts to do so by calling her. Instead, he says that he will write her a letter and see if she wishes to respond. Denies side effects from medications. Complains of some neck pain interrupting sleep. Says he could use some help around the house, e.g. ensuring that he takes his medications as prescribed; he is open to home health. Vital Signs Temp Pulse Resp BP Pulse Ox 05/15/18 05:23 97.7 F 57 L 16 108/57 L 97 Intake and Output 05/15/18 05/15/18 05/15/18 06:59 14:59 22:59 Intake Total 720 / 720 Balance 720 / 720 Intake: Oral 720 / 720 Laboratory Results - last 24 hr 05/12/18 05/15/18 12:54 07:18 RBC Folate 375 Valproic Acid 70 Labs reviewed. Depakote level now therapeutic. Review of Systems All other systems reviewed negative except as stated in HPI Mental Status Examination Appearance: Appropriate Consciousness: Alert Orientation: x4 Motor Activity: Other (No abnormal motor movements or ictal activity noted.) Speech: Unremarkable Language: Adequate Fund of Knowledge: Adequate Attention and Concentration: Adequate Memory: Unremarkable (Grossly intact on clinical exam) Mood: Anxious (Decreased) Affect: Appropriate Thought Process & Associations: Intact Thought Content: Appropriate Hallucination Type: None Delusion Type: None Suicidal Ideation: No Suicidal Plan: No Suicidal Intention: No Homicidal Ideation: No Homicidal Plan: No Homicidal Intention: No Mental Status Exam Remarks: Insight and judgment are perhaps fair Assessment and Plan - Assessment (1) Adjustment disorder with mixed disturbance of emotions and conduct Code(s): F43.25 - Adjustment disorder with mixed disturbance of emotions and conduct Status: Acute - Plan Plan: Continue current psychotropics as ordered. Consider titrating Effexor over the weekend to 150 mg daily to target residual psychiatric symptoms. Lidoderm patch for neck pain. Continue other medications and care as ordered. Justification for Continued Inpatient Stay: Risk for decompensation in less restrictive environment. Discharge Planning: Pending psychiatric stabilization. Possible discharge after the weekend, perhaps home with home health. Request Healthcare Surrogate/Guardian Advocate?: No
--- NOTE | 2018-05-15 14:41 | P.DIET ---
Nutritional Evaluation Type of nutrition evaluation: initial Nutrition consult regarding: Diet Evaluation [place] [facility] [place]: [place] [facility] w/diet(says cannot eat what is brought) Subjective Subjective Comments: Pt visited in the dayroom after lunch today. Pt has no complaints regarding breakfast. Pt says he has a h/o gastroplasty 25-years ago and there are specific foods that he cannot eat. Pt says he eats smaller meals. Food preferences taken during this visit. Objective - Diagnosis MDD - Objective [place] body weight: 75.4 kg % IBW: 113 Body Weight Used for Calculations: Actual (84.9kg) Energy Needs - Lower Range (kCal/kg): 22 Energy Needs - Upper Range (kCal/kg): 27 Lower Limit kCal/kg (kCals): 1,868 Upper Limit kCal/kg (kCals): 2,292 Lower Limit Protein Factor (Grams per Kg): 1.0 Upper Limit Protein Factor (Grams per Kg): 1.3 Lower Protein Needs (Protein): 85 Upper Protein Needs (Protein): 110 Dietitian Reviewed in Medical Record: Current diet, Curent medications, Intake & Output, Labs, Medical history Diet Order: Regular Oral Diet Intake Amount: Excellent 90%+ Objective Comments: PMH Includes: Ankle fracture, Epilepsy, Fracture Left Radius and Ulna; PTSD Ammonia 33 Meds Include: Depakote, Pepcid, Atarax, Effexor XR Assessment Assessment: Nutrition visit to assess pt's dietary needs and issues he reports having w/his meals here. Pt reports a history of gastroplasty and maintains his current wt. by consuming small meals. Food preferences taken. Labs reviewed. Dietitian will follow-up. Recommendations: 1. Pt reports a history of gastroplasty and maintains his current wt. by consuming small meals 2. Food preferences taken 3. Dietitian will follow-up Dietitian to Monitor: Intake & Output, Diet tolerance, Weight change, PO Intake
[2018-05-15] MEDS: Divalproex 250 MG ER Tablet PO SCH (21:24)
[2018-05-15] MEDS: Lidocaine 5% Patch T-DERMAL SCH (21:24)
[2018-05-15] MEDS: Melatonin 5 MG Tablet PO PRN (21:25)
[2018-05-16] MEDS: Venlafaxine XR 37.5 MG Capsule PO SCH (08:21)
[2018-05-16] MEDS: Famotidine 20 MG Tablet PO SCH ×2 (08:21→21:04)
[2018-05-16] MEDS: Venlafaxine XR 75 MG Capsule PO SCH (08:21)
--- NOTE | 2018-05-16 19:54 | P.PNPSY ---
Subjective Remarks: Reviewed electronic medical records and discussed case with staff. Follow-up was conducted in patient's room. He was found sleeping in the bed. His Depakote level is therapeutic at 66. Reports that he sleeping well and he has good appetite. He does state that he has been "very sleepy". He attributes it to the medication but states he only really felt this way today. Mental Status Examination Appearance: Appropriate Consciousness: Alert Orientation: x4 Motor Activity: Other (No abnormal motor movements or ictal activity noted.) Speech: Unremarkable Language: Adequate Fund of Knowledge: Adequate Attention and Concentration: Adequate Memory: Unremarkable (Grossly intact on clinical exam) Mood: Anxious (Decreased) Affect: Appropriate Thought Process & Associations: Intact Thought Content: Appropriate Hallucination Type: None Delusion Type: None Suicidal Ideation: No Suicidal Plan: No Suicidal Intention: No Homicidal Ideation: No Homicidal Plan: No Homicidal Intention: No Insight: Poor Judgment: Poor Assessment and Plan - Assessment (1) Adjustment disorder with mixed disturbance of emotions and conduct Code(s): F43.25 - Adjustment disorder with mixed disturbance of emotions and conduct Status: Acute - Plan Plan: Patient will be reevaluated Friday by the attending psychiatrist. Continue with current treatment plan. Justification for Continued Inpatient Stay: Moving this patient to a less restrictive environment would likely result in decompensation. Request Healthcare Surrogate/Guardian Advocate?: No
[2018-05-16] MEDS: Lidocaine 5% Patch T-DERMAL SCH (21:03)
[2018-05-16] MEDS: Divalproex 250 MG ER Tablet PO SCH (21:04)
[2018-05-17] MEDS: Famotidine 20 MG Tablet PO SCH ×2 (08:24→20:17)
[2018-05-17] MEDS: Venlafaxine XR 75 MG Capsule PO SCH (08:24)
[2018-05-17] MEDS: Venlafaxine XR 37.5 MG Capsule PO SCH (08:24)
--- NOTE | 2018-05-17 10:27 | P.PNPSY ---
Subjective Remarks: Reviewed electronic medical records and discussed case with staff. Patient in common area. Reports that he is feeling alot better. He has been out of his room and talking with other , participating in unit activities. He is complaining about hesitating to urinate and neck pain. Sleeping and eating well. Euthymic. Review of Systems All other systems reviewed negative except as stated in HPI Mental Status Examination Appearance: Appropriate Consciousness: Alert Orientation: x4 Motor Activity: Other (No abnormal motor movements or ictal activity noted.) Speech: Unremarkable Language: Adequate Fund of Knowledge: Adequate Attention and Concentration: Adequate Memory: Unremarkable (Grossly intact on clinical exam) Mood: Appropriate Affect: Appropriate Thought Process & Associations: Intact Thought Content: Appropriate Hallucination Type: None Delusion Type: None Suicidal Ideation: No Suicidal Plan: No Suicidal Intention: No Homicidal Ideation: No Homicidal Plan: No Homicidal Intention: No Insight: Fair Judgment: Impulsive Assessment and Plan - Assessment (1) Adjustment disorder with mixed disturbance of emotions and conduct Code(s): F43.25 - Adjustment disorder with mixed disturbance of emotions and conduct Status: Acute - Plan Plan: Patient will be reevaluated Friday by the attending psychiatrist. Continue with current treatment plan. Justification for Continued Inpatient Stay: Moving patient to a less restrictive environment may result in his decompensation. Request Healthcare Surrogate/Guardian Advocate?: No
[2018-05-17] MEDS: Divalproex 250 MG ER Tablet PO SCH (20:17)
[2018-05-17] MEDS: Lidocaine 5% Patch T-DERMAL SCH (20:17)
[2018-05-18] MEDS: Venlafaxine XR 75 MG Capsule PO SCH (09:19)
[2018-05-18] MEDS: Famotidine 20 MG Tablet PO SCH ×2 (09:19→20:55)
[2018-05-18] MEDS: Venlafaxine XR 37.5 MG Capsule PO SCH (09:19)
--- NOTE | 2018-05-18 12:37 | P.PNPSY ---
Subjective Remarks: Patient seen and examined with nurse. Chart reviewed. Case discussed with nursing staff who reports patient continues to endorse some low mood but is denying suicidal ideation. Patient is medication compliant. Case discussed with counselor. On my examination today, patient complains of dysphoria and anxiety, although this seems largely reactive to him learning that his dog has been placed in a kennel instead of being cared for by one of his tenants, as he had thought. He says that he was so angry at the tenant yesterday that, had he been outside of the hospital, "I would have dragged him into the street" (i.e. to do him harm). He denies any homicidal or violent ideation towards friend or anyone else now. He reports that friend Oni is going to retrieve dog from kennel. No side effects from medications. No physical complaints. Vital Signs Temp Pulse Resp BP Pulse Ox 05/18/18 06:05 98.3 F 61 18 111/72 97 05/17/18 17:33 98.7 F 68 17 112/73 97 Labs reviewed. Depakote level therapeutic. Ammonia level not elevated. Review of Systems All other systems reviewed negative except as stated in HPI Mental Status Examination Appearance: Appropriate Consciousness: Alert Orientation: x4 Motor Activity: Other (No motoric abnormalities noted. No ictal activity noted. ) Speech: Unremarkable Language: Adequate Fund of Knowledge: Adequate Attention and Concentration: Adequate Memory: Unremarkable (Grossly intact on clinical exam) Mood: Anxious, Other (Dysphoric) Affect: Anxious, Other (Restricted) Thought Process & Associations: Intact Thought Content: Appropriate Hallucination Type: None Delusion Type: None Suicidal Ideation: No Suicidal Plan: No Suicidal Intention: No Homicidal Ideation: No Homicidal Plan: No Homicidal Intention: No Insight: Fair Judgment: Impulsive Assessment and Plan - Assessment (1) Adjustment disorder with mixed disturbance of emotions and conduct Code(s): F43.25 - Adjustment disorder with mixed disturbance of emotions and conduct Status: Acute - Plan Plan: Suspect current anxiety and dysphoria is largely related to acute stressor as detailed above, although there may be some degree of underlying mood disorder. I will titrate Effexor to 150 mg daily to target patient's dysphoria. Continue other psychotropics as ordered. Continue to monitor on the inpatient unit. Continue other medications and care as ordered. Justification for Continued Inpatient Stay: Medication changes. Discharge Planning: Possible discharge tomorrow or Friday. Request Healthcare Surrogate/Guardian Advocate?: No
[2018-05-18] MEDS: Lidocaine 5% Patch T-DERMAL SCH (20:55)
[2018-05-18] MEDS: Divalproex 250 MG ER Tablet PO SCH (20:55)
[2018-05-19] MEDS: Venlafaxine XR 75 MG Capsule PO SCH (08:43)
[2018-05-19] MEDS: Famotidine 20 MG Tablet PO SCH ×2 (08:43→21:12)
--- NOTE | 2018-05-19 15:59 | P.PNPSY ---
Subjective Remarks: Reviewed electronic medical records and discussed case with staff. Follow-up was conducted in the hallway. His nurse reports that he was seclusive in the morning there was observed out in the day room today. Patient advises that he is a little aggravated due to his dog. His friend was unable to pick the dog and he will have to after being discharged. States that his appetite is still decreased. He does he is somewhat anxious today. After speaking with his counselor, it was decided to discharge him tomorrow in order to arrange the home health care. Mental Status Examination Appearance: Appropriate Consciousness: Alert Orientation: x4 Motor Activity: Other (No motoric abnormalities noted. No ictal activity noted. ) Speech: Unremarkable Language: Adequate Fund of Knowledge: Adequate Attention and Concentration: Adequate Memory: Unremarkable (Grossly intact on clinical exam) Mood: Anxious, Other (Dysphoric) Affect: Anxious, Other (Restricted) Thought Process & Associations: Intact Thought Content: Appropriate Hallucination Type: None Delusion Type: None Suicidal Ideation: No Suicidal Plan: No Suicidal Intention: No Homicidal Ideation: No Homicidal Plan: No Homicidal Intention: No Insight: Fair Judgment: Impulsive Assessment and Plan - Assessment (1) Adjustment disorder with mixed disturbance of emotions and conduct Code(s): F43.25 - Adjustment disorder with mixed disturbance of emotions and conduct Status: Acute - Plan Plan: Patient will be reevaluated tomorrow by the attending psychiatrist. Continue with current treatment plan. It is highly probable that he will be discharged tomorrow. His discharge arrangements are being firmed up at this time. Justification for Continued Inpatient Stay: Moving this patient to a less restrictive environment would likely result in decompensation. Request Healthcare Surrogate/Guardian Advocate?: No
[2018-05-19 18:29] VITALS: TEMP 97
[2018-05-19] MEDS: Divalproex 250 MG ER Tablet PO SCH (21:13)
[2018-05-19] MEDS: Melatonin 5 MG Tablet PO PRN (21:13)
[2018-05-19] MEDS: Lidocaine 5% Patch T-DERMAL SCH (21:13)
[2018-05-20 05:38] VITALS: BP 108/58; PULSE 62; RESP 16; O2SAT 96
[2018-05-20] MEDS: Famotidine 20 MG Tablet PO SCH (08:22)
[2018-05-20] MEDS: Venlafaxine XR 75 MG Capsule PO SCH (08:22)
--- NOTE | 2018-05-20 12:11 | P.DCO ---
- Home Health Nursing Order: Signs/symptoms of disease process, Nursing assessment with vital signs Instructions: To include home psychiatric nursing - New Media Strategist Order: To evaluate: Living conditions/environment, Support services Order: To provide: Long range planning, Community services - Case Management Consult No - Certification I have seen patient Jesús Yun on 05/20/18. My clinical findings support the need for the requested home health care services because: Need for psychosocial assistance I certify that my clinical findings support that this patient is homebound because: Need for psychosocial assistance
--- NOTE | 2018-05-20 12:12 | P.DSPSY ---
Psychiatry Discharge Summary Inpatient Psychiatric care?: Yes Advance Directives: No Mental Health Advance Directive: No Health Care Proxy: No - Admission Admission Date: May 07, 2018 12:05 - Admission Diagnosis (1) Major depression Code(s): F32.9 - Major depressive disorder, single episode, unspecified Brief History: The patient is a 48-year-old man, Domiciled in [facility]. presents as a transfer from [place] [address] psychiatric evaluation under a [place] act. Patient had presented to [facility] as an overdose on . The patient had admittedly had overdose on his carbamazepine. Patient subsequently became lethargic and was intubated. He was admitted to the ICU. Patient was eventually weaned off the respirator and is vital signs had normalized. Patient's mentation improved. Patient had been placed under [place] act by his attending physician. He has now been medically cleared and transferred to our facility for psychiatric evaluation. The patient states that he had overdosed because his girlfriend had left him and moved to [place]. He was concerned because she is a chronic alcoholic and has cirrhosis and liver failure. He had quit drinking himself in order to help her. When she had moved she shut her phone off and would not communicate with him. This had made him increasingly depressed. He has suicidal thoughts at that time. After he ingested the overdose he had rethought his overdose and then wanted to get help. He attempted to flag people down in the street but unfortunately he became weak and unresponsive. The patient here states that he is no longer suicidal. He has no intention on hurting himself. He is looking forward to reconnecting with his significant other. The patient denies any homicidal ideation. He denies any medical complaints at this time. Tobacco Use In Past 30 Days: No How Often Do You Have a Drink Containing Alcohol: 2 to 3 times a week Hospital Course: Patient was admitted to a locked, inpatient psychiatric unit. A neuropsychological evaluation was obtained. Appropriate precautions were in place throughout patient's hospital stay. Patient was seen and examined on the unit by psychiatry and also visited by counselor. Psychotropic medications were adjusted. Patient tolerated medication changes well without side effects. Patient had improvement in presenting psychiatric symptomatology during the course of his hospital stay. There was no evidence of any suicidality or homicidality on the inpatient unit. There was no evidence of significant self- care deficit. On the day of discharge: Patient seen and examined with nurse. Chart reviewed. Case discussed with nursing staff. No behavioral issues noted overnight. On my examination today, the patient feels ready to leave the hospital today. He denies any suicidal or homicidal ideation, intent or plan. In particular, the patient denies any violent or homicidal ideation directed against his tenant who was supposed to be watching his dog. Mood and anxiety symptoms are improved versus admission, and I can elicit no severe depressive or hypomanic/manic symptoms at time of discharge. He denies any audiovisual hallucinations. I can elicit no delusional material. Regarding his relationship with Alla, the patient says that he will take a 'hands off' approach: he will write her a letter and await a response, if any. Regarding the episode a few weeks ago in which patient was fond in gas charger's home, patient continues to insist that this was entirely related to methamphetamine intoxication. We have discussed the dangerousness of this behavior, and I have recommended abstinence from substances of abuse coupled with outpatient chemical dependency evaluation. Patient denies side effects from medications. No physical complaints. Suicide and violence risk assessment on day of discharge both suggest lower imminent risk from mental illness, and the patient' s level of function is adequate for outpatient care. We will bolster the patient's protective factors by referring him for outpatient mental health follow-up and also by arranging for home health care. I have discussed home health care arrangements with the counselor molding supervisor who is making these arrangements. Patient will be discharged home with home health today with psychiatric follow-up as arranged by counselor. Patient is also to follow up with primary care. Patient is to abide by seizure precautions. I have counseled the patient to return to the psychiatric emergency room for any concerning symptoms as part of a general safety plan. - Discharge Discharge Date: 05/20/18 - Discharge Diagnosis (1) Adjustment disorder with mixed disturbance of emotions and conduct Diagnosis: Principal (Resolved) Code(s): F43.25 - Adjustment disorder with mixed disturbance of emotions and conduct Status: Acute (2) Mild neurocognitive disorder Diagnosis: Secondary Code(s): G31.84 - Mild cognitive impairment, so stated Status: Chronic Discharge Disposition: Home with home health care - Discharge Instructions Discharge Diet: Regular Diet Activities You Can Perform: Weight Bearing As Tolerat Activities to Avoid: Bathing, Driving Additional Activity Instructions: Seizure precautions - Discharge Time > 30 minutes Mental Status Examination Appearance: Appropriate Consciousness: Alert Orientation: x4 Motor Activity: Other (No abnormal motor movements noted. No ictal activity noted.) Speech: Unremarkable Language: Adequate Fund of Knowledge: Adequate Attention and Concentration: Adequate Memory: Unremarkable (Grossly intact on clinical exam) Mood: Appropriate Affect: Appropriate Thought Process & Associations: Intact, Logical, Linear Thought Content: Appropriate Hallucination Type: None Delusion Type: None Suicidal Ideation: No Suicidal Plan: No Suicidal Intention: No Homicidal Ideation: No Homicidal Plan: No Homicidal Intention: No Mental Status Exam Remarks: Insight and judgment are perhaps fair. Discharge/Advance Care Plan - Results Vital Signs: Last Vital Signs Temp 97 F L 05/19/18 06:10 Pulse 62 05/20/18 05:37 Resp 16 05/20/18 05:37 BP 108/58 L 05/20/18 05:37 Pulse Ox 96 05/20/18 05:37 Lab Results: Laboratory Results Valproic Acid 66 mcg/mL (50-100) 05/15/18 19:30 Summary of Procedures: EEG read as normal Imaging: ITS Impressions Abdomen X-Ray 05/12/18 00:00 CONCLUSION: No contraindication to MRI seen. Head MRI 05/12/18 00:00 CONCLUSION: Brain MRI within normal limits. Pending Results: None - Medications Number of antipsychotic medications at discharge: 0 - Discharge Care Plan Goals to Promote Your Health: * To prevent worsening of your condition and complications * To maintain your health at the optimal level Directions to Meet Your Goals: Take your medications as prescribed Follow your dietary instruction Follow activity as directed Keep your appointments as scheduled Take your immunizations and boosters as scheduled If your symptoms worsen call your PCP, if no PCP go to Urgent Care Center or Emergency Room For 10/03 questions related to your inpatient stay or results of tests pending at discharge, please contact Dr. Morteza Carbajal MD at [phone] Smoking is Dangerous to Your Health. Avoid second hand smoking (1) Major depression Qualifiers: Major depression recurrence: recurrent Psychotic features: without psychotic features
== END 2018-05-20 14:30 | disposition home health service (06) ==
LOC: NEDAMB 18:04 → NEPJ 05-07 11:59 → H260 05-07 12:05
PROVIDERS: ADMIT Psychiatry & Neurology Psychiatry; ATTEND Psychiatry & Neurology Psychiatry